=== PATIENT | male | born 1965 | race Caucasian/White ===

== ENCOUNTER → 2019-09-26 08:48 | Outpatient (CLI) | payer OTHER, SELFPAY ==
--- NOTE | ~2019-09-26 | XR_ITS ---
XR chest 2V DATE: 09/26/2019 09:21 INDICATION: Chest wall pain. Productive cough for 7 days. Smoker. TECHNIQUE: PA and lateral views COMPARISON: 10/03/2018 PA and lateral chest FINDINGS: Normal heart size. No hilar or mediastinal enlargement. No pulmonary infiltrate or consolid ation, pleural effusion or pulmonary vascular congestion or pneumothorax is detected. There is aortic arch calcification. IMPRESSION: No active cardiopulmonary disease Reviewed, dictated and finalized at location B. ING ROOM SUPERVISOR
== END ==
PROVIDERS: PCP Physician Assistant; Visit Provider Physician Assistant
DX: R05 Cough (principal)
CPT/HCPCS: 71046

== ENCOUNTER 2019-10-08 17:18 | Outpatient (CLI) | payer BC, SELFPAY ==
[2019-10-08 17:44] LABS: Basophils Absolute Auto 0.1 K/mm3 (0.0-0.1); Basophils Percent Auto 0.4 % (0.2-1.2); Eosinophils Absolute Auto 0.3 K/mm3 (0-0.3); Eosinophils Percent Auto 2.2 % (0-4.4); Hematocrit 45.6 % (42.0-52.0); Hemoglobin 14.8 g/dL (14.0-18.0); Immature Granulocyte Absolute 0.05 K/mm3 (0.00-0.031); Immature Granulocyte Percent A 0.4 % (0-0.5); Lymphocytes Absolute Auto 3.63 K/mm3 (0.9-3.2); Lymphocytes Percent Auto 28.6 % (18.3-44.2); Mean Corpuscular HGB Conc 32.5 g/dl (32-36); Mean Corpuscular Hemoglobin 30.4 pg (26-34); Mean Corpuscular Volume 93.6 fl (80-100); Mean Platelet Volume 10.7 fl (7.4-10.4); Monocytes Absolute Auto 0.8 K/mm3 (0.1-0.6); Monocytes Percent Auto 6.4 % (2.6-8.5); Neutrophils Absolute Auto 7.9 K/mm3 (1.3-6.7); Platelet Count Result 238 k/mm3 (150-375); Red Blood Count 4.87 M/mm3 (4.6-6.20); Red Cell Distribution Width 13.3 % (11.5-14.5); White Blood Count 12.7 K/mm3 (4.5-10.0)
[2019-10-08 17:55] LABS: Alanine Aminotransferase 39 U/L (4-50); Albumin Level 4.5 g/dL (3.5-5.1); Alkaline Phosphatase 99 U/L (38-126); Amylase 74 U/L (30-110); Aspartate Amino Transferase 31 U/L (17-59); Bilirubin,Total 0.6 mg/dL (0.2-1.3); Blood Urea Nitrogen 19 mg/dL (9-20); Calcium 9.5 mg/dL (8.4-10.2); Carbon Dioxide 28 mmol/L (22-30); Chloride 103 mmol/L (98-107); Estimated Glomerular Filt Rate > 60; Glucose 83 mg/dL (75-110); Lipase 69 U/L (23-300); Potassium 4.2 mmol/L (3.4-5.0); Sodium 139 mmol/L (137-145)
[2019-10-08 19:22] LABS: Hemoglobin A1C 6.1 % (<5.7)
== END 2019-10-08 17:19 | disposition home or self-care (01) ==
LOC: ANHLAB 17:21
PROVIDERS: PCP Physician Assistant; Visit Provider Physician Assistant
DX: R10.84 Generalized abdominal pain (principal); Z13.1 Encounter for screening for diabetes mellitus
CPT/HCPCS: 36415; 80053; 82150; 83036; 83690; 85025

== ENCOUNTER 2019-10-09 15:35 | Outpatient (CLI) | payer BC, SELFPAY ==
--- NOTE | ~2019-10-09 | CT_ITS ---
EXAMINATION: CT abdomen pelvis w con EXAM DATE: 10/09/2019 16:15 INDICATION: Flank, low back pain. TECHNIQUE: Spiral CT of the abdomen and pelvis was performed following intravenous injection of 100 m L Omnipaque 350. Axial, coronal and sagittal images were reviewed. The dose-length product (DLP) fo r this examination was 1328.53 mGy-cm. The exposure was tailored according to patient size (auto mA exposure control), and iterative reconstruction (ASIR) was used as additional dose reduction techniqu e. There is no prior study for comparison. FINDINGS: Bilateral adrenal gland hyperplasia, left more than right. The liver, spleen, adrenal glan ds and pancreas are otherwise unremarkable. Gallbladder is unremarkable. No biliary obstruction. P ortal and splenic veins are patent. Kidneys enhance symmetrically. There is no hydronephrosis. Ther e is a 2 mm left inferior calyceal stone. The prostate is unremarkable. The bladder is unremarkable . There is no retroperitoneal or pelvic lymphadenopathy. There is mild scattered arteriosclerotic disease. The appendix is normal. The stomach and small bowel are unremarkable. There is expected amount of c olonic stool. There is mild scattered colonic diverticulosis. There is no adjacent inflammatory christy ge to suggest diverticulitis. The heart is normal in size. There are no pericardial or pleural effus ions. The lung bases are unremarkable. There are no acute fractures identified. IMPRESSION: 1. No acute intra-abdominal findings. 2. Adrenal hyperplasia. 3. Mild scattered colonic diverticulosis. Reviewed, dictated and finalized at location A. F SECURITY OFFICER
== END 2019-10-09 15:36 | disposition home or self-care (01) ==
LOC: ANHIMG 15:41
PROVIDERS: PCP Physician Assistant; Visit Provider Physician Assistant
DX: S30.1XXA Contusion of abdominal wall, initial encounter (principal); X58.XXXA Exposure to other specified factors, initial encounter; K57.30 Diverticulosis of large intestine without perforation or abscess without bleeding
CPT/HCPCS: 74177; Q9967

== ENCOUNTER 2019-10-27 08:50 | Emergency (ER) | payer BC, SELFPAY ==
--- NOTE | ~2019-10-27 | XR_ITS ---
[XR ribs LT 2V w CXR 2V ] INDICATION: Rib pain. Cough. TECHNIQUE: Frontal projection of the upper left ribs, frontal projection of the lower left ribs, obli que projection of all the left ribs, frontal inspiratory chest x-ray for interpretation. FINDINGS: There is an acute nondisplaced left ninth rib fracture. There are no soft tissue abnormalit y seen. The lungs are clear. IMPRESSION: 1: Acute nondisplaced left ninth rib fracture. Reviewed, dictated and finalized at location A. SURVEYING SURVEY WORKER
[2019-10-27 08:56] VITALS: BP 190/89; PULSE 95; RESP 16; TEMP 36.6; O2SAT 97
--- NOTE | 2019-10-27 09:31 | ECG_ITS ---
Measurements Intervals [place] Rate: 89 P: 29 [place]: 174 QRS: 43 QRSD: 111 T: 37 QT: 350 QTc: 428 Interpretive Statements SINUS RHYTHM MINIMAL Q WAVES- INFERIOR LEADS BASELINE ARTIFACT- I, II, III, AVR, AVL, AVF, V4-V5 BORDERLINE ECG Electronically Signed On 10-27-2019 15:55:43 CHEMICAL PROJECT ENGINEER by Angel Narayan D.O.
--- NOTE | 2019-10-27 09:35 | ED.BACK ---
HPI - Back Pain/Injury General Chief Complaint: Back Pain/Injury <JENNY Jones Last Filed: 10/27/19 10:40> Stated Complaint: L rib pain <JENNY Jones Last Filed: 10/27/19 10:40> Time Seen by Provider: 10/27/19 09:04 <JENNY Jones Last Filed: 10/27/19 10:40> Source: patient <JENNY Jones Last Filed: 10/27/19 10:40> Mode of arrival: ambulatory <JENNY Jones Last Filed: 10/27/19 10:40> Limitations: no limitations <JENNY Jones Last Filed: 10/27/19 10:40> History of Present Illness HPI Narrative: This is a 54 year old male that presents to the ER for left sided rib pain x 1 month. Reports he had an upper respiratory infection at the beginning of last month and was coughing a lot. Reports since he has been having sharp left sided rib pain. Reports the pain is worse with deep breathing and coughing. Reports he coughed this morning and the pain acutely worsened. Denies fever, congestion, rhinorrhea, sore throat or shortness of breath. <JENNY Jones Last Filed: 10/27/19 10:40> Related Data Home Medications: Home Medications Medication Instructions Recorded Confirmed albuterol sulfate INHALATION 10/27/19 10/27/19 budesonide-formoterol [Symbicort] INHALATION 10/27/19 losartan 25 mg PO DAILY 10/27/19 meloxicam 10/27/19 <JENNY Jones Last Filed: 10/27/19 10:40> Allergies/Adverse Reactions: Allergies Allergy/AdvReac Type Severity Reaction Status Date / Time No Known Allergies Allergy Unverified 10/27/19 09:03 <JENNY Jones Last Filed: 10/27/19 10:40> Review of Systems Review of Systems: Narrative: CONSTITUTIONAL: Denies fever ENT: Denies rhinorrhea, congestion, sore throat CARDIOVASCULAR: Reports chest pain. Denies edema. RESPIRATORY: Reports cough. Denies dyspnea. MUSCULOSKELETAL: Reports back pain, joint pain, and myalgia. NEUROLOGIC: Denies numbness, or weakness. <Kiarra Perez PA-C - Last Filed: 10/27/19 10:40> All systems reviewed & are unremarkable except as noted in HPI and below <Kiarra Perez PA-C - Last Filed: 10/27/19 10:40> [facility] Past Medical History Medical History: Medical History (Updated 10/27/19 @ 10:37 by Kiarra Perez PA-C) History of hypertension <Kiarra Perez PA-C - Last Filed: 10/27/19 10:40> Social History Social History: Social History (Updated 10/27/19 @ 09:35 by Kiarra Perez PA-C) Smoking status: Current every day smoker Alcohol intake: current Gender identity (if verbalized by the patient): Male <Kiarra Perez PA-C - Last Filed: 10/27/19 10:40> Exam Narrative: Exam Narrative: GENERAL: Well-appearing, obese, and in no acute distress. HEAD: Normocephalic, atraumatic. EYES: EOMI. ENT: Nares clear, no rhinorrhea or epistaxis. Mucous membranes moist. Oropharynx without tonsillar hypertrophy exudate or other lesions. Bilateral TMs pearly irene non-bulging NECK: Supple. No adenopathy or masses. CHEST: Clear to auscultation. No respiratory distress. No wheezes rales or rhonchi. Tender to palpation of left lateral lower ribs HEART: Regular rate and rhythm. No murmur heard. Normal peripheral pulses. EXTREMITIES: Normal range of motion. No edema. SKIN: Warm, dry, no rash. NEURO: No focal deficits. Alert and oriented x3. PSYCH: Normal mood and affect <Kiarra Perez PA-C - Last Filed: 10/27/19 10:40> Course Vital Signs Vital signs: Vital Signs Temperature 97.8 F 10/27/19 08:56 Pulse Rate 95 10/27/19 08:56 Respiratory Rate 16 10/27/19 08:56 Blood Pressure 190/89 H 10/27/19 08:56 Pulse Oximetry 97 10/27/19 08:56 Temperature 97.8 F 10/27/19 08:56 Pulse Rate 77 10/27/19 11:11 Respiratory Rate 18 10/27/19 11:11 Blood Pressure 138/79 10/27/19 11:11 Pulse Oximetry 95 10/27/19 11:11 <Kiarra Perez PA-C - Last Filed: 10/27/19 10:40> Vital S
--- NOTE | 2019-10-27 09:44 | PC.NURSE ---
Pt in X ray at this time
[2019-10-27 09:58] LABS: Basophils Percent Auto 0.4 % (0.2-1.2); Eosinophils Absolute Auto 0.2 K/mm3 (0-0.3); Eosinophils Percent Auto 2.2 % (0-4.4); Hematocrit 46.8 % (42.0-52.0); Hemoglobin 15.5 g/dL (14.0-18.0); Immature Granulocyte Absolute 0.02 K/mm3 (0.00-0.031); Immature Granulocyte Percent A 0.2 % (0-0.5); Lymphocytes Absolute Auto 1.99 K/mm3 (0.9-3.2); Lymphocytes Percent Auto 23.4 % (18.3-44.2); Mean Corpuscular HGB Conc 33.1 g/dl (32-36); Mean Corpuscular Hemoglobin 30.7 pg (26-34); Mean Corpuscular Volume 92.7 fl (80-100); Mean Platelet Volume 10.6 fl (7.4-10.4); Monocytes Absolute Auto 0.6 K/mm3 (0.1-0.6); Monocytes Percent Auto 6.6 % (2.6-8.5); Neutrophils Absolute Auto 5.7 K/mm3 (1.3-6.7); Neutrophils Percent Auto 67.2 % (45.5-73.1); Platelet Count Result 209 k/mm3 (150-375); Red Blood Count 5.05 M/mm3 (4.6-6.20); Red Cell Distribution Width 13.1 % (11.5-14.5); White Blood Count 8.5 K/mm3 (4.5-10.0)
[2019-10-27] MEDS: LOSARTAN POTASSIUM 25 MG TABLET PO (10:01)
[2019-10-27 10:10] LABS: Blood Urea Nitrogen 13 mg/dL (9-20); Calcium 8.9 mg/dL (8.4-10.2); Carbon Dioxide 28 mmol/L (22-30); Chloride 101 mmol/L (98-107); Estimated CRCL calculation 120 ml/min; Estimated Glomerular Filt Rate > 60; Glucose 128 mg/dL (75-110); Potassium 3.9 mmol/L (3.4-5.0); Sodium 140 mmol/L (137-145)
[2019-10-27 10:16] LABS: D Dimer 0.61 ug/mL (<0.48)
[2019-10-27 10:21] LABS: Troponin I < 0.012 ng/mL (0.000-0.034)
[2019-10-27 11:11] VITALS: BP 138/79; PULSE 77; RESP 18; O2SAT 95
== END 2019-10-27 11:13 | disposition home or self-care (01) ==
PROVIDERS: Physician Assistant; Emergency Provider General Practice; PCP Physician Assistant
DX: S22.32XA Fracture of one rib, left side, initial encounter for closed fracture (principal); I10 Essential (primary) hypertension; F17.290 Nicotine dependence, other tobacco product, uncomplicated; R94.31 Abnormal electrocardiogram [ECG] [EKG]; X50.9XXA Other and unspecified overexertion or strenuous movements or postures, initial encounter
CPT/HCPCS: 36415; 71045; 71101; 80048; 84484; 85025; 85380; 93005; 99284; A9270

== ENCOUNTER 2020-10-05 11:26 | Emergency (ER) | payer BC, SELFPAY ==
[2020-10-05] VITALS (8 sets, daily range): BP systolic 110–166; BP diastolic 58–73; PULSE 77–93; RESP 11–19; TEMP 36.6; O2SAT 94–98
--- NOTE | ~2020-10-05 | XR_ITS ---
EXAMINATION: XR chest 1V portable EXAM DATE: 10/05/2020 11:46 INDICATION: Shortness of breath 4 times a week. History of COPD. TECHNIQUE: Portable AP frontal chest x-ray was obtained. Comparison is made to prior examination from 10/27/2019. FINDINGS: The lungs are clear. There are no pleural effusions. The cardiomediastinal silhouette is within normal limits. There is no pneumothorax suspected. The bones and soft tissues are unremarkab le. IMPRESSION: No acute cardiopulmonary findings. Reviewed, dictated and finalized at location B. H MIXER
--- NOTE | 2020-10-05 11:35 | ECG_ITS ---
Measurements Intervals [place] Rate: 89 P: 65 [place]: 210 QRS: 50 QRSD: 112 T: 60 QT: 317 QTc: 387 Interpretive Statements SINUS RHYTHM WITH FIRST DEGREE AV BLOCK INCOMPLETE RIGHT BUNDLE BRANCH BLOCK BASELINE ARTIFACT- II, III, AVF ABNORMAL ECG Electronically Signed On 10-05-2020 11:50:39 CHILD LIFE SPECIALIST by Angel Narayan D.O.
--- NOTE | 2020-10-05 11:39 | ED.SOB ---
HPI - SOB/Dyspnea General Chief Complaint: Shortness of Breath/Dyspnea Stated Complaint: sob Time Seen by Provider: 10/05/20 11:37 History of Present Illness HPI Narrative: 55 yo male w/ htn, COPD presents to the ED for SOB. Increasing SOB for a few months. Constant. Worse with exertion or laying flat on his back. He is on symbicort and albuterol, which does not seem to be helping. He reports that he can not tie his shoes without becoming SOB. He is supposed to have a sleep study for suspected sleep apnea. No cough, congestion, fever, CP, palpitations. Related Data Home Medications Medication Instructions Recorded Confirmed albuterol sulfate INHALATION 10/27/19 10/27/19 budesonide-formoterol [Symbicort] INHALATION 10/27/19 losartan 25 mg PO DAILY 10/27/19 meloxicam 10/27/19 Allergies Allergy/AdvReac Type Severity Reaction Status Date / Time No Known Allergies Allergy Unverified 10/27/19 09:03 Review of Systems Review of Systems: All systems reviewed & are unremarkable except as noted in HPI and below Constitutional: Constitutional: Denies chills, Denies fever(s) and Denies weakness Cardiovascular: Cardiovascular: Denies chest pain Respiratory: Respiratory: Denies chest congestion, Denies cough and Reports dyspnea Gastrointestinal: Gastrointestinal: Denies abdominal pain, Denies nausea and Denies vomiting Musculoskeletal: Musculoskeletal: Denies back pain Neurologic: Denies dizziness and Denies weakness [facility] Past Medical History Medical History (Updated 10/05/20 @ 14:16 by Khalif Veras MD) COPD (chronic obstructive pulmonary disease) History of hypertension Social History Social History (Updated 10/27/19 @ 09:35 by Kiarra Perez PA-C) Smoking status: Current every day smoker Alcohol intake: current Gender identity (if verbalized by the patient): Male Exam Const: General: no acute distress and alert Nutritional Appearance: obese Orientation/consciousness: patient oriented x3 HENMT: Head: normal to inspection Resp: Effort & Inspection: normal respiratory effort Auscultation: clear to auscultation bilaterally Cardio: Rate: regular rate Rhythm: regular rhythm GI: GI Palp: Yes Soft to palpation and No Tenderness to palpation present (GI) Skin: General skin exam: normal color Rashes: no rashes Neuro: General: patient oriented x3, moves all extremities, no focal motor deficits and CN's II-XI intact bilaterally Speech: normal speech Extrem: General: edema bilateral (mild) Psych: Mental Status: mental status grossly normal Affect: normal affect Thought content: Yes Normal thought content present Course Vital Signs Vital signs: Vital Signs Pulse Rate 90 10/05/20 11:36 Temperature 36.6 C 10/05/20 11:37 Pulse Rate 89 10/05/20 14:33 Respiratory Rate 18 10/05/20 14:33 Blood Pressure 110/63 10/05/20 14:33 Pulse Oximetry 94 10/05/20 14:33 MDM - SOB/Dyspnea MDM Narrative Medical decision making narrative: Breathing improved with neb. X-ray negative. I will treat for COPD exacerbation. Differential Diagnosis Differential diagnosis: Likely acute exacerbation of chronic obstructive airways disease, congestive heart failure and community acquired pneumonia Medical Records Attestation: I reviewed the patient's medical records. Lab Data Attestation: I reviewed the patient's lab results. Result diagrams: 10/05/20 11:39 10/05/20 11:39 Labs: Lab Results 10/05/20 10/05/20 10/05/20 Range/Units 11:39 11:39 11:39 WBC 11.5 H (4.5-10.0) K/mm3 RBC 4.87 (4.6-6.20) M/mm3 Hgb 15.3 (14.0-18.0) g/dL Hct 45.0 (42.0-52.0) % MCV 92.4 (80-100) fl MCH 31.4 (26-34) pg MCHC 34.0 (32-36) g/dl RDW 13.2 (11.5-14.5) % Plt Count 207 (150-375) k/mm3 MPV 10.8 H (7.4-10.4) fl Immature Gran % (Auto) 0.5 (0-0.5) % Neut % (Auto) 65.6 (45.5-73.1) % Lymph % (Auto) 24.7 (18.3-
[2020-10-05 11:46] LABS: Basophils Percent Auto 0.3 % (0.2-1.2); Eosinophils Absolute Auto 0.3 K/mm3 (0-0.3); Eosinophils Percent Auto 2.2 % (0-4.4); Hemoglobin 15.3 g/dL (14.0-18.0); Immature Granulocyte Absolute 0.06 K/mm3 (0.00-0.031); Immature Granulocyte Percent A 0.5 % (0-0.5); Lymphocytes Absolute Auto 2.83 K/mm3 (0.9-3.2); Lymphocytes Percent Auto 24.7 % (18.3-44.2); Mean Corpuscular Hemoglobin 31.4 pg (26-34); Mean Corpuscular Volume 92.4 fl (80-100); Mean Platelet Volume 10.8 fl (7.4-10.4); Monocytes Absolute Auto 0.8 K/mm3 (0.1-0.6); Monocytes Percent Auto 6.7 % (2.6-8.5); Neutrophils Absolute Auto 7.5 K/mm3 (1.3-6.7); Neutrophils Percent Auto 65.6 % (45.5-73.1); Platelet Count Result 207 k/mm3 (150-375); Red Blood Count 4.87 M/mm3 (4.6-6.20); Red Cell Distribution Width 13.2 % (11.5-14.5); White Blood Count 11.5 K/mm3 (4.5-10.0)
[2020-10-05 11:57] LABS: INR 0.9; Prothrombin Time 12.5 Seconds (11.1-14.7)
[2020-10-05 11:58] LABS: Alanine Aminotransferase 33 U/L (4-50); Albumin Level 4.1 g/dL (3.5-5.1); Alkaline Phosphatase 111 U/L (38-126); Anion Gap 7 mmol/L (8-16); Aspartate Amino Transferase 27 U/L (17-59); Bilirubin,Total 0.5 mg/dL (0.2-1.3); Blood Urea Nitrogen 14 mg/dL (9-20); Calcium 9.2 mg/dL (8.4-10.2); Carbon Dioxide 29 mmol/L (22-30); Chloride 104 mmol/L (98-107); Estimated CRCL calculation 125 ml/min; Estimated Glomerular Filt Rate > 60; Glucose 128 mg/dL (75-110); Sodium 140 mmol/L (137-145)
[2020-10-05 11:59] LABS: Partial Thromboplastin Time 26.7 SECONDS (22.3-36.8)
[2020-10-05 12:10] LABS: Troponin I < 0.012 ng/mL (0.000-0.034)
[2020-10-05] MEDS: ALBUTEROL SULFATE NEB 2.5 MG/0.5 ML INH 10 MG INHALATION (12:15)
[2020-10-05] MEDS: IPRATROPIUM BR 0.02% INH SOLN 0.5 MG/2.5 ML VIAL 1 MG INHALATION (12:15)
[2020-10-05] MEDS: methylPREDNISolone SOD SUCC 125 MG VIAL IV PUSH (12:17)
[2020-10-05 12:26] LABS: Base Excess ABG 1.4 mEq/l (+/-2.0); Carboxyhemoglobin 3.6 % THb (0-2.0); Fractional Inspired Oxygen 21 %; HCO3 ABG 26.3 mEq/l (22.0-26.0); Methemoglobin ABG 0.3 %THb (0-1.5); Oxygen Content ABG 19.1 %vol (16.0-22.0); Oxygen Saturation ABG 94.6 % (95.0-100.0); Oxyhemoglobin 90.4 % THb (90.0-100.0); PCO2 ABG 42.4 mmHg (35.0-45.0); PO2 FiO2 Ratio Arterial Blood 3.43 %; Reduced Hemoglobin 5.7 %THb (0-5.0)
[2020-10-05 12:27] LABS: Device ROOM AIR; Modified Allen's Test Pass; Site Drawn LEFT RADIAL
[2020-10-05 12:39] LABS: NT Pro B Type Natriuretic Pept 66 PG/ML (5-100)
== END 2020-10-05 14:34 | disposition home or self-care (01) ==
PROVIDERS: Emergency Provider Emergency Medicine; PCP Physician Assistant
DX: J44.1 Chronic obstructive pulmonary disease with (acute) exacerbation (principal); F17.200 Nicotine dependence, unspecified, uncomplicated; I10 Essential (primary) hypertension
CPT/HCPCS: 36415; 36600; 71045; 80053; 82375; 82805; 83050; 83880; 84484; 85025; 85610; 85730; 93005; 94640; 96374; 99284; J2930

== ENCOUNTER 2020-10-13 12:39 | Emergency (ER) | payer BC, SELFPAY ==
--- NOTE | ~2020-10-13 | XR_ITS ---
EXAMINATION: XR chest 2V DATE: 10/13/2020 13:17 INDICATION: Shortness of breath TECHNIQUE: PA and lateral views of the chest are obtained. COMPARISON: 10/05/2020 FINDINGS: There is minimal opacity of the right lung base. There is no pleural effusion or pneumothor ax. The cardiomediastinal silhouette is normal. There is mild thoracic spondylosis. IMPRESSION: 1. Minimal right basilar airspace opacity, consistent with atelectasis versus pneumonia. Reviewed, dictated and finalized at location A. LOG SPECIALIST IMPRESSION: 1. Minimal right basilar airspace opacity, consistent with atelectasis versus p neumonia.
--- NOTE | 2020-10-13 12:51 | ECG_ITS ---
Measurements Intervals [place] Rate: 88 P: 39 [place]: 195 QRS: 18 QRSD: 126 T: 29 QT: 343 QTc: 416 Interpretive Statements SINUS RHYTHM INCOMPLETE RIGHT BUNDLE BRANCH BLOCK INFERIOR INFARCT, AGE INDETERMINATE ABNORMAL ECG Electronically Signed On 10-13-2020 12:59:36 COTTON STRIPPER by Angel Narayan D.O.
[2020-10-13 13:04] VITALS: BP 158/75; PULSE 92; RESP 18; TEMP 36.1; O2SAT 98
[2020-10-13 13:16] LABS: Basophils Percent Auto 0.3 % (0.2-1.2); Eosinophils Absolute Auto 0.2 K/mm3 (0-0.3); Eosinophils Percent Auto 1.8 % (0-4.4); Hematocrit 42.2 % (42.0-52.0); Hemoglobin 14.1 g/dL (14.0-18.0); Immature Granulocyte Absolute 0.07 K/mm3 (0.00-0.031); Immature Granulocyte Percent A 0.7 % (0-0.5); Lymphocytes Absolute Auto 2.38 K/mm3 (0.9-3.2); Lymphocytes Percent Auto 24.1 % (18.3-44.2); Mean Corpuscular HGB Conc 33.4 g/dl (32-36); Mean Corpuscular Hemoglobin 31.1 pg (26-34); Mean Corpuscular Volume 93.2 fl (80-100); Mean Platelet Volume 10.5 fl (7.4-10.4); Monocytes Absolute Auto 0.6 K/mm3 (0.1-0.6); Monocytes Percent Auto 6.5 % (2.6-8.5); Neutrophils Absolute Auto 6.6 K/mm3 (1.3-6.7); Neutrophils Percent Auto 66.6 % (45.5-73.1); Platelet Count Result 172 k/mm3 (150-375); Red Blood Count 4.53 M/mm3 (4.6-6.20); Red Cell Distribution Width 13.2 % (11.5-14.5); White Blood Count 9.9 K/mm3 (4.5-10.0)
[2020-10-13 13:27] LABS: Alanine Aminotransferase 64 U/L (4-50); Albumin Level 3.7 g/dL (3.5-5.1); Alkaline Phosphatase 109 U/L (38-126); Anion Gap 4 mmol/L (8-16); Aspartate Amino Transferase 35 U/L (17-59); Bilirubin,Total 0.6 mg/dL (0.2-1.3); Blood Urea Nitrogen 15 mg/dL (9-20); Calcium 8.8 mg/dL (8.4-10.2); Carbon Dioxide 27 mmol/L (22-30); Chloride 107 mmol/L (98-107); Estimated CRCL calculation 163 ml/min; Estimated Glomerular Filt Rate > 60; Glucose 142 mg/dL (75-110); Sodium 138 mmol/L (137-145)
[2020-10-13 13:36] LABS: NT Pro B Type Natriuretic Pept 74 PG/ML (5-100)
[2020-10-13 15:02] VITALS: BP 136/73; PULSE 82; RESP 20; TEMP 36.4; O2SAT 96
[2020-10-13 16:16] VITALS: O2SAT 93
[2020-10-13 16:17] VITALS: BP 164/101; O2SAT 95
--- NOTE | 2020-10-13 16:35 | ED.GENADULT ---
HPI - General Adult General Chief complaint: Shortness of Breath/Dyspnea Stated complaint: sob Time Seen by Provider: 10/13/20 16:14 Source: patient History of Present Illness HPI narrative: Patient is a 55 y/o male complaining moderate head and neck swelling this morning. He states that he woke up feeling swollen. He also noticed redness on his and neck. He felt there was something in throat choking him. There is no known alleviating or exacerbating factor. However, his symptoms improved spontaneously. He does not feel any swelling at this time. Related Data Home Medications Medication Instructions Recorded Confirmed albuterol sulfate 2 puff INHALATION Q4H 10/27/19 10/13/20 losartan 25 mg PO DAILY 10/27/19 10/13/20 meloxicam 15 mg PO DAILY 10/27/19 10/13/20 varenicline [Chantix Starting 1 ea PO DAILY 10/13/20 10/13/20 Month Box] Allergies Allergy/AdvReac Type Severity Reaction Status Date / Time No Known Allergies Allergy Verified 10/13/20 15:03 Review of Systems Constitutional: Constitutional: Denies chills, Denies fever(s), Denies headache(s) and Denies weakness Eyes: Eyes: Denies blurry vision ENT: Denies headache(s), Denies neck pain and Reports other (head and neck swelling) Cardiovascular: Cardiovascular: Denies chest pain and Reports dyspnea Respiratory: Respiratory: Denies cough and Reports dyspnea Gastrointestinal: Gastrointestinal: Denies abdominal pain, Denies diarrhea, Denies nausea and Denies vomiting Genitourinary: Genitourinary: Denies hematuria and Denies dysuria Musculoskeletal: Musculoskeletal: Denies back pain and Denies neck pain Neurologic: Denies headache(s) and Denies weakness [facility] Past Medical History Medical History COPD (chronic obstructive pulmonary disease) History of hypertension Social History Social History Smoking status: Current every day smoker Alcohol intake: current Gender identity (if verbalized by the patient): Male Exam Const: General: no acute distress and well developed Orientation/consciousness: oriented to person, oriented to place, oriented to time and patient oriented x3 HENMT: Head: normocephalic Ears: external ears normal General nose exam: Normal external nose present Eyes: General: appearance normal, both eyes and all related structures Conjunctivae: conjunctivae normal Neck: Neck: normal visual inspection and full ROM Chest: Chest palpation & inspection: normal inspection of the chest and no tenderness Resp: Effort & Inspection: normal respiratory effort Auscultation: clear to auscultation bilaterally Cardio: Rate: regular rate Rhythm: regular rhythm GI: GI Palp: No abdominal tenderness and Yes Soft to palpation Skin: General skin exam: normal color and turgor normal Neuro: General: oriented to person, oriented to place, oriented to time and patient oriented x3 Cognition (Neuro): normal cognition Extrem: General: normal to inspection, full ROM and no pedal edema Psych: Appearance: grossly normal Mental Status: mental status grossly normal Affect: normal affect Course Reevaluation(s) Reevaluation #1: Patient does not want to have CT done. He wants to leave A. He is awake, alert and competent to make decision for himself. Date: 10/13/20 Time: 18:42 Vital Signs Vital signs: Vital Signs Temperature 36.1 C L 10/13/20 13:04 Pulse Rate 92 10/13/20 13:04 Respiratory Rate 18 10/13/20 13:04 Blood Pressure 158/75 H 10/13/20 13:04 Pulse Oximetry 98 10/13/20 13:04 Temperature 36.4 C L 10/13/20 15:02 Pulse Rate 82 10/13/20 15:02 Respiratory Rate 20 10/13/20 15:02 Blood Pressure 164/101 H 10/13/20 16:17 Pulse Oximetry 95 10/13/20 16:17 Medical Decision Making Vital Signs Vital Signs: Vital Signs Temperature 36.1 C L 10/13/20 13:04 Pulse Rate 92 10/13/20 13:04 Respiratory Rat
== END 2020-10-13 19:08 | disposition left against medical advice (07) ==
PROVIDERS: Emergency Medicine; Emergency Provider Emergency Medicine; PCP Physician Assistant
DX: R22.1 Localized swelling, mass and lump, neck (principal); R06.02 Shortness of breath; J44.9 Chronic obstructive pulmonary disease, unspecified; I10 Essential (primary) hypertension; F17.200 Nicotine dependence, unspecified, uncomplicated; I45.10 Unspecified right bundle-branch block; R94.31 Abnormal electrocardiogram [ECG] [EKG]
CPT/HCPCS: 36415; 71046; 80053; 83880; 85025; 93005; 99283

== ENCOUNTER 2020-12-02 13:21 | Outpatient (CLI) | payer BC, SELFPAY ==
--- NOTE | ~2020-12-02 | CT_ITS ---
EXAMINATION: CT lung screening DATE: 12/02/2020 13:42 INDICATION: Personal history of tobacco dependence TECHNIQUE: Computed tomography (CT) of the chest was performed without intravenous contrast. The dose -length product was 535.46 mGy-cm. Automated exposure control and iterative reconstruction technique were employed. COMPARISON: None FINDINGS: Heart size is normal. No thoracic lymphadenopathy. No significant pleural or pericardial ef fusion. There is lingular atelectasis/scarring. No endobronchial lesions mild emphysematous changes. There is a 2.3 x 1.4 cm left adrenal nodule, likely benign. No focal airspace consolidation. No pulmo nary nodules or masses. Mild thoracic spondylosis. IMPRESSION: 1. Lung-RADS category 1: Negative. Continue annual screening with noncontrast low-dose chest CT in 12 months. Reviewed, dictated and finalized at location B. IMPRESSION: 1. Lung-RADS category 1: Negative. Continue annual screening with noncontrast l ow-dose chest CT in 12 months.
== END 2020-12-02 13:22 | disposition home or self-care (01) ==
PROVIDERS: PCP Physician Assistant; Visit Provider Internal Medicine Pulmonary Disease
DX: Z12.2 Encounter for screening for malignant neoplasm of respiratory organs (principal); Z87.891 Personal history of nicotine dependence
CPT/HCPCS: 71271

== ENCOUNTER 2020-12-10 13:45 | Outpatient (CLI) | payer BC, SELFPAY ==
[2020-12-10 13:10] VITALS: PULSE 82; O2SAT 95
--- NOTE | 2020-12-10 13:53 | ECHO_ITS ---
Patient Info Name: Abdiel Srivastava Age: 55 years : 1965 Gender: Male Ht: 71 in Wt: 300 lbs BSA: 2.67 m2 HR: 80 bpm BP: 167 / 86 mmHg Technical Quality: Fair Exam Date: 12/10/2020 2:03 PM Exam Location: [facility] Patient Status: Outpatient Admit Date: 12/10/2020 Staff Ordering Physician: Cornell Rider MD Surveyor Helper: Lety Ramos RDCS Attending Provider: Cornell Rider MD Referring Physician: Tereso TOBIN; Exam Type: CA echo doppler color flow Study Info Indications R06.02 - Shortness of breath Complete two-dimentional, color flow and Doppler transthoracic echocardiogram is performed with agitated saline and with contrast to opacify the left ventricle and to improve the delineation of the left ventricle endocardial borders. Summary 1. Left ventricular chamber dimension is normal. 2. Left ventricular systolic function is normal, estimated at 60-65%. 3. The left ventricular diastolic function is normal. 4. E/e' 8 is minimally elevated. 5. Global longitudinal strain is abnormal at -15.8%. 6. There is mild aortic valve sclerosis. Left Ventricle E/e' 8 is minimally elevated. Global longitudinal strain is abnormal at -15.8%. Left ventricular chamber dimension is normal. Left ventricular systolic function is normal, estimated at 60-65%. The left ventricular diastolic function is normal. Right Ventricle Right ventricular chamber dimension is normal. Right ventricular systolic function is normal. Left Atria Left atrial chamber dimension is normal. Right Atria Right atrial chamber dimension is normal. Aortic Valve The aortic valve is trileaflet. There is mild aortic valve sclerosis. There is no aortic valve stenosis. There is no aortic valve regurgitation. Pulmonic Valve There is no pulmonic regurgitation. Mitral Valve There is no mitral valve stenosis. There is no mitral valve regurgitation. Tricuspid Valve There is no tricuspid valve regurgitation. Pericardium/Pleural There is no pericardial effusion. Inferior Vena Cava Normal inferior vena cava with >50% collapse upon inspiration consistent with normal right atrial pressure, 5 mmHg. Aorta The aortic root size at the sinus of Valsalva is normal. Left Ventricular Outflow Tract Name Value Normal LVOT 2D LVOT Diameter 2.0 cm LVOT Doppler LVOT Peak Gradient 6 mmHg LVOT Mean Gradient 4 mmHg LVOT VTI 22 cm LVOT VTI/AV VTI Ratio 1.0 LVOT Stroke Volume 72 ml LVOT CO 5.5 l/min LVOT CI 2.1 l/min/m2 Pulmonic Valve Name Value Normal RVOT Doppler RVOT Peak Gradient 3 mmHg PV Doppler
[2020-12-10 14:50] VITALS: PULSE 88; O2SAT 95
[2020-12-10 14:55] VITALS: PULSE 102; O2SAT 93
--- NOTE | 2020-12-10 15:16 | HOMEO2EVAL ---
Home Oxygen Evaluation RC: Home Oxygen (O2) Evaluation Start: 12/10/20 15:14 Freq: Status: Active Protocol: RPE Activity Type Activity Date Activity User E-Sign Co-Sign Detail Recorded Client Recorded Date Recorded By Document 12/10/20 13:10 DJO [email or web address] 12/10/20 15:16 DJO Document 12/10/20 14:50 DJO [email or web address] 12/10/20 15:16 DJO Document 12/10/20 14:55 DJO [email or web address] 12/10/20 15:16 DJO 12/10/20 12/10/20 12/10/20 13:10 14:50 14:55 Home O2 Evaluation Test Phase Resting Resting Exercise Oxygen Delivery Room Air Room Air Room Air Pulse Oximetry (90-100 %) 95 95 93 Pulse Rate (60-100 beats/min) 82 88 102 H Ambulation Distance (feet) 1,000 Treatment Charges O2 Evaluation - Outpatient
--- NOTE | 2020-12-10 17:43 | P.PCNPFT_ITS ---
PFT Interpretation This is a pulmonary function test with pre and post-bronchodilator spirometry, plethysmography and diffusing capacity. The test was performed and results interpreted in accordance with the 2019 and 2005 ATS/ERS Task Force guidelines respectively using the Global Lung Function Initiative-2012 reference equations. Patient demonstrated good effort and c ooperation. Reproducibility criteria were met. The quality of the pre bronchodilator spirometry maneuver was Grade A and post bronchodilator spirometry maneuver was Grade A. Findings: Spirometry: There is decreased maximal expiratory airflow at all lung volumes with a concave expiratory flow tracing. The pre bronchodilator FVC is 3.09 L, 63% predicted. The pre bronchodilator FEV1 is 2.13 L, 56% predicted. The FEV1: FVC ratio 69%. The post bronchodilator FVC is 3.19 L, representing a 3% increase. Post bronchodilator FEV1 is 2.19 L, representing a 3% increase. Plethysmography: The total lung capacity is 5.29, 74% predicted. The functional residual capacity is 2.40 L, 64% predicted. The residual volume is 2.19 L, 98% predicted. Diffusing capacity: The absolute diffusion capacity is 20.8, 70% predicted. The diffusing capacity corrected for alveolar volume is 4.41, 103% predicted. Impression: There is a combined obstructive and restrictive ventilatory abnormality. There are no guidelines to assign the severity of obstruction and restriction with a combined abnormality. In my opinion, given the moderately concave expiratory flow tracing and decreased FEV1:FVC ratio and mild restrictive abnormality I would state there is a moderate obstructive abnormality and a mild restrictive abnormality resulting in a moderately severe decreased FEV1. There is no significant improvement after inhaling a single dose of albuterol. The diffusing capacity is mildly decreased but normalizes when corrected for alveolar volume. There are no prior studies for comparison PFT Procedure Performed PFT Procedure Performed Spirometry with Pre/Post Bronchodilator Plethysmography (Lung Vol) Diffusing Cap (DLCO)
--- NOTE | 2021-01-04 16:19 | HOMEO2EVAL ---
Evaluation was performed at [facility]
== END 2020-12-10 13:46 | disposition home or self-care (01) ==
PROVIDERS: PCP Physician Assistant; Visit Provider Internal Medicine Pulmonary Disease
DX: R06.02 Shortness of breath (principal); J44.9 Chronic obstructive pulmonary disease, unspecified; R94.2 Abnormal results of pulmonary function studies; I35.8 Other nonrheumatic aortic valve disorders
CPT/HCPCS: 93306; 94060; 94618; 94726; 94729

== ENCOUNTER 2022-09-08 09:52 | Outpatient (CLI) | payer BC, SELFPAY ==
--- NOTE | ~2022-09-08 | CT_ITS ---
CT Scan of the Chest without Contrast: Clinical Indication: Cancer screening, personal history of tobacco dependent, current smoker Technique: Contiguous sections were acquired throughout the chest without intravenous contrast. Dose reduction technique was used on this scan by utilizing automated exposure control and iterative recon struction technique. The dose-length product (DLP) was 441.39 mGy-cm. COMPARISON: 12/02/2020 Findings: There is no evidence of any significant mediastinal, hilar or axillary lymphadenopathy. Mild coronary artery calcifications are present. There is no evidence of pleural or pericardial effusion. The lungs are clear. No pulmonary nodules or infiltrates are noted. Images through the upper abdomen reveal stable adrenal nodule. Impression: Lung RADS 1: Negative. Continue annual surveillance with low-dose noncontrast CT scan in 12 months. Reviewed, dictated and finalized at [facility]. K DISPATCHER Impression: Lung RADS 1: Negative. Continue annual surveillance with low-dose noncontrast C T scan in 12 months.
== END 2022-09-08 09:53 | disposition home or self-care (01) ==
PROVIDERS: PCP Physician Assistant; Visit Provider Internal Medicine Pulmonary Disease
DX: Z12.2 Encounter for screening for malignant neoplasm of respiratory organs (principal); Z87.891 Personal history of nicotine dependence
CPT/HCPCS: 71271

== ENCOUNTER 2022-12-13 08:23 | Observation (INO) | payer BC, SELFPAY ==
[2022-12-13] VITALS (29 sets, daily range): BP systolic 114–162; BP diastolic 59–80; PULSE 57–70; RESP 13–23; TEMP 36.1–36.6; O2SAT 92–100
--- NOTE | 2022-12-13 | ECHO_ITS ---
Patient Info Name: Abdiel Srivastava Age: 57 years : 1965 Gender: Male Ht: 71 in Wt: 241 lbs BSA: 2.38 m2 HR: 57 bpm BP: 148 / 79 mmHg Heart Rhythm: Sinus Rhythm Exam Date: 12/13/2022 2:39 PM Exam Location: [facility] Pulmonary Patient Status: Outpatient Admit Date: 12/13/2022 Staff Ordering Physician: Pili Weston NP [employer] Mechanic: Domingo Hill RDCS, RT Attending Provider: Lawrence Nayak MD Referring Physician: Enrico LENZ; Exam Type: CA echo doppler color flow Study Info Indications R07.9 - Chest pain, unspecified Complete two-dimensional, color flow and Doppler transthoracic echocardiogram is performed. Summary 1. Complete two-dimensional, color flow and Doppler transthoracic echocardiogram is performed. 2. Left ventricular chamber dimension is normal. 3. Left ventricular systolic function is normal, estimated at 60-65%. 4. There is moderately increased left ventricular wall thickness. 5. The left ventricular diastolic function is grade II diastolic dysfunction. 6. Global longitudinal strain is mildly elevated at -14 %. 7. Technically difficult study with limited views. 8. There is trace mitral valve regurgitation. Left Ventricle Left ventricular chamber dimension is normal. Left ventricular systolic function is normal, estimated at 60-65%. There is moderately increased left ventricular wall thickness. The left ventricular diastolic function is grade II diastolic dysfunction. Global longitudinal strain is mildly elevated at -14 %. Technically difficult study with limited views. Right Ventricle Right ventricular chamber dimension is normal. Right ventricular systolic function is normal. Left Atria Left atrial chamber dimension is normal. Right Atria Right atrial chamber dimension is mildly enlarged. Aortic Valve The aortic valve is trileaflet. There is no aortic valve stenosis. There is no aortic valve regurgitation. Pulmonic Valve The pulmonic valve is not well visualized. There is trace pulmonic regurgitation. Mitral Valve The mitral valve has normal leaflets. There is trace mitral valve regurgitation. Tricuspid Valve The tricuspid valve leaflets are normal. There is trace tricuspid valve regurgitation. Unable to estimate PA systolic pressure due to poor spectral resolution of tricuspid regurgitant jet velocity. Pericardium/Pleural The pericardium appears normal. There is no pericardial effusion. Inferior Vena Cava Normal inferior vena cava with >50% collapse upon inspiration consistent with normal right atrial pressure, 5 mmHg. Aorta The aortic root size at the sinus of Valsalva is normal. There is mild aortic atherosclerosis. Left Ventricular Outflow Tract Name Value Normal LVOT 2D LVOT Diameter 2.2 cm LVOT Doppler LVOT Peak Gradient 4 mmHg LVOT Mean Gradient 2 mmHg LVOT VTI 21 cm LVOT VTI/AV VTI Ratio 1.0 LVOT Stroke Volume 81 ml LVOT CO 4.8 l/min
--- NOTE | ~2022-12-13 | XR_ITS ---
Clinical Indication: Chest pain PA and lateral views of the chest: Comparison: 10/13/2020 Findings: The lungs are clear, without evidence of focal consolidation or pleural effusion. Cardiome diastinal silhouette is within normal limits. Bones and soft tissues are unremarkable. Impression: Normal chest. Reviewed, dictated and finalized at location . Impression: Normal chest.
--- NOTE | 2022-12-13 08:24 | ECG_ITS ---
Measurements Intervals Anderson Rate: 70 P: 58 OR: 228 QRS: 30 QRSD: 122 T: 38 QT: 380 QTc: 412 Interpretive Statements SINUS RHYTHM WITH FIRST DEGREE AV BLOCK RIGHT BUNDLE-BRANCH BLOCK ABNORMAL ECG COMPARED TO ECG 10/13/2020 12:56:19 FIRST DEGREE AV BLOCK NOW PRESENT RIGHT BUNDLE-BRANCH BLOCK NOW PRESENT Electronically Signed On 12-13-2022 16:20:02 CDT by Tereso Castillo M.D.
--- NOTE | 2022-12-13 08:34 | ED.CHESTPAIN ---
HPI - Chest Pain General Chief Complaint: Chest Pain Stated Complaint: chest pain Time Seen by Provider: 12/13/22 08:26 Source: patient, family and RN notes reviewed History of Present Illness HPI narrative: Patient presents to emergency department from home for chest pain. Patient states he has been having intermittent chest pain located over the midsternal left side of his chest that began last night. States that the pain is a pressure sensation goes up into his neck and into his arms bilaterally but worse on the left states that the pain will last for approximately 20 seconds and then improved then he states he has had several episodes of these throughout the night is associate with mild shortness of breath. He denies any fevers or chills abdominal pain nausea or vomiting denies any previous cardiac history. Does note a history of hypertension high cholesterol and tobacco use Related Data Home Medications Medication Instructions Recorded Confirmed albuterol sulfate 90 mcg/actuation 2 puff inhalation Q4H 10/27/19 08/09/22 aerosol inhaler losartan 25 mg tablet 25 mg PO DAILY 10/27/19 08/09/22 meloxicam 15 mg tablet 15 mg PO DAILY 10/27/19 08/09/22 Allergies Allergy/AdvReac Type Severity Reaction Status Date / Time No Known Allergies Allergy Verified 12/13/22 08:34 Review of Systems Review of Systems: Gen.: Denies fevers or chills ENT: Denies congestion Respiratory: Reports shortness of breath CV: Reports chest pain GI: Denies abdominal pain nausea, emesis or diarrhea Musculoskeletal: Denies back pain or muscle pain Neuro: Denies numbness, tingling, weakness or focal weakness Skin: Denies rash Except as documented, all other systems reviewed and negative [facility] Past Medical History Medical History (Updated 12/13/22 @ 12:30 by Sammy Pedersen DO) Acute pain of right knee Body mass index [BMI] 29.0-29.9, adult (09/16/15) COPD (chronic obstructive pulmonary disease) Effusion of knee joint, left History of hypertension Lateral epicondylitis, right elbow Prepatellar bursitis of right knee Primary osteoarthritis of left knee Social History Social History Smoking packs per day: 0.5 Smoking cigarettes per day: 10.0 Years smoked: 30 Smoking pack-years: 15.00 Smoking status: Current every day smoker Alcohol intake: current Gender identity (if verbalized by the patient): Male Exam Narrative: APPEARANCE: No acute distress, nontoxic, resting in bed EYES: EOMI HEENT: Normocephalic, atraumatic, OMM RESPIRATORY: No respiratory distress Clear to auscultation bilaterally with no rhonchi wheezing or rales. CARDIOVASCULAR: Regular rate and rhythm without murmurs rubs or gallops. ABDOMINAL: Soft, nontender, nondistended, no rebound or guarding MUSCULOSKELETAl: Moves all extremities. No clubbing, cyanosis or edema. NEURO: Awake and alert. Following commands, speech normal, no focal deficits SKIN:: Warm, dry. No rashes lesions or abrasions PSYCHIATRIC: Normal affect/mood, Course Course Emergency Course: Called and discussed with NORA Leslie for Dr. Iglesias for cardiology presentation work-up agrees with consult Discussed with Dr. Nayak who agrees with admission for hospitalist service Discussed with patient and family results of workup and diagnosis. Discussed need for admission. Patient and family understand and agree to current treatment plan Vital Signs Vital signs: Vital Signs Temperature 97.8 F 12/13/22 08:29 Pulse Rate 68 12/13/22 08:29 Respiratory Rate 16 12/13/22 08:29 Blood Pressure 162/78 H 12/13/22 08:29 Pulse Oximetry 98 12/13/22 08:29 Oxygen Delivery Room Air 12/13/22 08:29 Temperature 97.8 F 12/13/22 08:29 Pulse Rate 63 12/13/22 11:43 Respiratory Rate 18 12/13/22 11:43 Blood Pressure 140/80 12/13/22 11:01 Pulse Oximetry 98 12/13/22 11:43 Oxygen Delivery Room Air 12/13/22 08:29
[2022-12-13] MEDS: ASPIRIN 81 MG CHEWABLE TABLET 324 MG PO (08:35)
[2022-12-13 08:37] LABS: Basophils Percent Auto 0.5 % (0.2-1.2); Eosinophils Absolute Auto 0.2 K/mm3 (0-0.3); Eosinophils Percent Auto 1.9 % (0-4.4); Hematocrit 49.1 % (42.0-52.0); Hemoglobin 16.1 g/dL (14.0-18.0); Immature Granulocyte Absolute 0.01 K/mm3 (0.00-0.031); Immature Granulocyte Percent A 0.1 % (0-0.5); Lymphocytes Absolute Auto 2.39 K/mm3 (0.9-3.2); Lymphocytes Percent Auto 27.8 % (18.3-44.2); Mean Corpuscular HGB Conc 32.8 g/dl (32-36); Mean Corpuscular Volume 94.4 fl (80-100); Mean Platelet Volume 10.9 fl (7.4-10.4); Monocytes Absolute Auto 0.6 K/mm3 (0.1-0.6); Neutrophils Absolute Auto 5.4 K/mm3 (1.3-6.7); Neutrophils Percent Auto 62.7 % (45.5-73.1); Platelet Count Result 167 k/mm3 (150-375); Red Cell Distribution Width 13.8 % (11.5-14.5); White Blood Count 8.6 K/mm3 (4.5-10.0)
[2022-12-13 08:47] LABS: Alanine Aminotransferase 25 U/L (6-50); Albumin Level 4.8 g/dL (3.5-5.1); Alkaline Phosphatase 121 U/L (38-126); Anion Gap 9 mmol/L (8-16); Aspartate Amino Transferase 23 U/L (17-59); Bilirubin,Total 0.7 mg/dL (0.2-1.3); Blood Urea Nitrogen 22 mg/dL (9-20); Calcium 9.3 mg/dL (8.4-10.2); Carbon Dioxide 28 mmol/L (22-30); Chloride 104 mmol/L (98-107); Estimated CRCL calculation 123 ml/min; Estimated Glomerular Filt Rate > 60; Glucose 105 mg/dL (65-110); Lipase 81 U/L (23-300); Potassium 4.2 mmol/L (3.4-5.0); Prothrombin Time 12.6 Seconds (11.1-14.7); Sodium 141 mmol/L (137-145)
[2022-12-13 08:48] LABS: Partial Thromboplastin Time 30.9 SECONDS (22.3-36.8)
[2022-12-13 08:59] LABS: Troponin I < 0.012 ng/mL (0.000-0.034)
[2022-12-13 09:27] LABS: D Dimer 0.48 ug/mL (<0.48)
[2022-12-13 11:56] LABS: Troponin I < 0.012 ng/mL (0.000-0.034)
--- NOTE | 2022-12-13 12:52 | PM.IMHP ---
H&P: HPI History of Present Illness Date/Time: 12/13/22 12:52 Chief Complaint: Chest pain Narrative: This is a 57-year-old male patient who has a history of COPD and hypertension. The patient came to the emergency room from home with complaints of chest pain. The patient stated that his pain is located over his midsternal area but did not radiate to his neck or arm. However the patient stated his arms felt heavy. He denied any shortness of breath. This pain started when he was asleep last night and kept him awake. The patient took for small dose aspirin last night and the pain left after 20 minutes. The patient went to work at [employer] today and while he was walking he had this midsternal discomfort again. The patient did not take any more aspirin but was given aspirin here and the pain is now resolved. He denied any fever chills. No nausea vomiting. He had no previous cardiac history. The is at the bedside and she stated that he has had chest pain in the past but did not have it worked up. The patient did not say when his chest pain occurred last time. The patient has not had any cardiac catheterization or any stress test. The patient is irritated today and is wanting to go home. He has not eaten today and he is a chronic smoker. I cannot offer him a nicotine patch at this time due to the risk of coronary artery disease. I explained that if he left the hospital would be against medical advice. I recommended that he stay and had further workup and be evaluated by Cardiology before he is discharged. I explained that I ordered an echo and a stress test. I cannot guarantee if those tests will be done today or tomorrow. I did review his test results with him. His cardiac enzymes x2 are nonreactive so far. It looks like in the past and 2019 in 2020 he has had cardiac enzymes checked and those were negative as well. The patient also states that he feels that there is something in his throat or that his throat is dry. He denies acid reflux. Chest x-ray was read as normal chest. The patient was given aspirin in the emergency room. The patient is being admitted to observation status on the date of service of 12/13/2022 Review of Systems Review of Systems: All systems reviewed & are unremarkable except as noted in HPI and below Constitutional: Constitutional: Reports as per HPI and Reports no additional constitutional complaints Eyes: Eyes: Reports as per HPI and Reports no additional eye complaints ENT: Reports system reviewed and no additional complaints, except as documented and Reports Normal hearing present Cardiovascular: Cardiovascular: Reports no additional cardiovascular complaints Respiratory: Respiratory: Reports no additional respiratory complaints and Reports no additional respiratory complaints Gastrointestinal: Gastrointestinal: Reports as per HPI and Reports no additional gastrointestinal complaints Musculoskeletal: Musculoskeletal: Reports no additional musculoskeletal complaints Integumentary/Breasts: Skin/Breast: Reports system reviewed and no additional complaints, except as docu and Reports as per HPI Neurologic: Reports system reviewed and no additional complaints, except as documented, Reports as per HPI and Reports Normal hearing present Psychiatric: Psychiatric: Reports no additional psychiatric complaints and Reports as per HPI Endocrine: Endocrine: Reports no additional endocrine complaints Hematologic/Lymphatic: Hematologic/Lymphatic: Reports no additional hematologic/lymphatic complaints Allergic/Immunologic: Allergic/Immunologic: Reports no additional allergic/immunologic complaints [facility] Past Medical History Medical History Acute pain of right knee Body mass index [BMI] 29.0-29.9, adult (09/16/15) COPD (chronic obstructive pulmonary disease) Effusion of knee joint, left History of hypertension Lateral epicondylitis, right elbow Pre
--- NOTE | 2022-12-13 13:06 | PM.CNCAR ---
Assessment and Plan Assessment and plan (1) Chest pain: Code(s): R07.9 - Chest pain, unspecified Status: Acute Assessment and Plan: Presents with an occurrence of chest pain that awoke him from sleep this morning. Has been having complaint of this same chest pain intermittently for months. Chest pain seems to occur at random, does not have an exertional component. His EKG shows sinus rhythm with a first degree AVB, which is chronic. No ischemic STTW changes. He had two negative troponin levels. Echo showed normal LVSF and no RWMA. Free from chest pain since his presentation to the hospital. No objective evidence of ACS and he is chest pain free at this time, however he does have risk factors for CAD (smoking, HTN) so further work up in the form of a stress test would be reasonable. This can be done as an outpatient. He has follow up scheduled with Dr. Wallace next week. Educated him about angina and concerning s/s for LA. He verbalizes understanding and understands he is to return to the ED with recurrence of CP. (2) History of hypertension: Code(s): Z86.79 - Personal history of other diseases of the circulatory system Status: Acute Assessment and Plan: Patient states his blood pressure has always been borderline. He has been prescribed losartan but states he quit taking it because it wasn't changing anything. Advised him to resume his amlodipine. (3) History of tobacco abuse: Code(s): Z87.891 - Personal history of nicotine dependence Status: Acute Assessment and Plan: Smoking cessation recommended. History of Present Illness History of Present Illness Consult date/time: 12/13/22 13:06 Requesting physician: Sammy Pedersen DO Consult reason: chest pain Reason For Visit: Chest Pain Narrative: Mr. Srivastava is a 57 year old male with a history of COPD, hypertension, and tobacco use. This is a patient who presents to the emergency department with a chief complaint of chest pain. He has been having intermittent episodes of central chest pain for the past year. Patient was seen recently by his primary care doctor for this same complaint and was referred to our practive for evaluation but has not yet been seen. He states that he seems to experience the chest discomfort at random and most recently he awoke from sleep because of the pain. He denies any exertional chest pain. He describes the sensation as pressure. He also states that both of his arms feel heavy. He denies any palpitations, shortness of breath, syncope, pre-syncope, orthopnea, PND. He has been free from chest pain since this morning when he had the episode that prompted his presentation to the hospital. He does not have any complaints at the time of my interview. Review of Systems Review of Systems: All systems reviewed & are unremarkable except as noted in HPI and below PMFSH Past Medical History Medical History Acute pain of right knee Body mass index [BMI] 29.0-29.9, adult (09/16/15) COPD (chronic obstructive pulmonary disease) Effusion of knee joint, left History of hypertension Lateral epicondylitis, right elbow Prepatellar bursitis of right knee Primary osteoarthritis of left knee Surgical History Surgical History (Updated 12/13/22 @ 14:06 by Pili Weston NP) H/O arthroscopic knee surgery Family History Family History (Updated 12/13/22 @ 13:52 by Pili Weston NP) Unknown No problems noted. Social History Social History (Updated 12/13/22 @ 13:53 by Pili Weston NP) Social History: The patient stated that he smokes a pack a cigarettes a day. He lives with his . He has 1 child. He works at [employer]. Code status full code Smoking packs per day: 0.5 Smoking cigarettes per day: 10.0 Years smoked: 30 Smoking pack-years: 15.00 Smoking status: Current every day smoker Alcohol intake:
--- NOTE | 2022-12-13 15:03 | PCRCNOTE ---
spoke with RN about bringing pt a hospital CPAP unit after order was put in. RN stated that pt was being sent home and not to bother with bringing hospital CPAP unit down to pt.
== END 2022-12-13 17:06 | disposition home or self-care (01) ==
LOC: ANHED 08:45 → ANHIMU 11:48
PROVIDERS: Admitting Provider Internal Medicine; Emergency Provider Emergency Medicine; PCP Physician Assistant; Visit Provider Internal Medicine
DX: R07.9 Chest pain, unspecified (principal); I11.9 Hypertensive heart disease without heart failure; J44.9 Chronic obstructive pulmonary disease, unspecified; M17.12 Unilateral primary osteoarthritis, left knee; R94.31 Abnormal electrocardiogram [ECG] [EKG]; G47.33 Obstructive sleep apnea (adult) (pediatric); Z86.79 Personal history of other diseases of the circulatory system; F10.90 Alcohol use, unspecified, uncomplicated; F17.210 Nicotine dependence, cigarettes, uncomplicated; Z79.51 Long term (current) use of inhaled steroids; Z79.899 Other long term (current) drug therapy
CPT/HCPCS: 36415; 71046; 80053; 83690; 84484; 85025; 85380; 85610; 85730; 93005; 93306; 99285; A9270; G0378

== ENCOUNTER 2023-09-11 15:03 | Outpatient (CLI) | payer BC, SELFPAY ==
--- NOTE | ~2023-09-11 | CT_ITS ---
EXAMINATION: CT lung screening DATE: 09/11/2023 15:22 INDICATION: Z87.891 - Personal history of nicotine dependence TECHNIQUE: Computed tomography (CT) of the chest was performed without intravenous contrast. Addition al 3D reconstructions utilizing coronal maximum intensity projection (MIP) were performed. Automated exposure control and iterative reconstruction technique were employed. The dose-length product was 32 8.94 mGy-cm. COMPARISON: 09/08/2022 FINDINGS: Mild emphysema. No suspicious pulmonary nodules, pneumonia, pulmonary edema or other pulmonary infilt rates. No pleural effusion. Heart size normal. Atherosclerotic coronary artery calcifications unchang ed prior median sternotomy and coronary artery bypass grafting. No pericardial effusion. Thoracic aor ta is normal in caliber. No pathologically enlarged thoracic lymphadenopathy. Visualized upper abdome n is unremarkable. Mild thoracic spondylosis. IMPRESSION: 1. Lung-RADS category 1: Negative. Continue annual screening with noncontrast low-dose chest CT in 12 months. Reviewed, dictated and finalized at location A. THERAPIST IMPRESSION: 1. Lung-RADS category 1: Negative. Continue annual screening with noncontrast l ow-dose chest CT in 12 months.
== END 2023-09-11 15:04 | disposition home or self-care (01) ==
PROVIDERS: PCP Physician Assistant; Visit Provider Physician Assistant
DX: Z12.2 Encounter for screening for malignant neoplasm of respiratory organs (principal); Z87.891 Personal history of nicotine dependence
CPT/HCPCS: 71271

== ENCOUNTER → 2023-12-05 15:10 | Outpatient (CLI) | payer BC, SELFPAY ==
--- NOTE | ~2023-12-05 | XR_ITS ---
EXAM: XR knee RT 3V DATE: 12/05/2023 16:37 HISTORY: KNEE PAIN . COMPARISON: None available. FINDINGS: Normal mineralization. No fracture or dislocation. No lytic or blastic lesion. Moderate me dial joint space narrowing. Mild tricompartmental osteophytosis. No erosion or periosteal change. Min imal atherosclerotic calcifications. Surgical clips in the medial knee soft tissues. IMPRESSION: Tricompartmental right knee osteoarthritis, moderate in the medial compartment. Reviewed, dictated and finalized at location K.
== END ==
PROVIDERS: PCP Physician Assistant; Visit Provider Physician Assistant
DX: M17.11 Unilateral primary osteoarthritis, right knee (principal)
CPT/HCPCS: 73562

== ENCOUNTER 2023-12-28 12:46 | Emergency (ER) | payer BC, SELFPAY | END 2023-12-28 12:56 | disposition left against medical advice (07) | PROVIDERS: Emergency Provider Nurse Practitioner; PCP Physician Assistant | DX: Z53.21 Procedure and treatment not carried out due to patient leaving prior to being seen by health care provider (principal) | CPT/HCPCS: 99199 ==

== ENCOUNTER 2023-12-28 13:12 | Emergency (ER) | payer BC, SELFPAY ==
--- NOTE | ~2023-12-28 | CT_ITS ---
EXAMINATION: CT abd pelvis lumbar wo con DATE: 12/28/2023 16:31 INDICATION: Flank pain. TECHNIQUE: Computed tomography (CT) of the abdomen and pelvis and lumbar spine was performed without intravenous contrast. Automated exposure control and iterative reconstruction technique were employed . The dose-length product was 997.89 mGy-cm. COMPARISON: CT abdomen and pelvis 10/09/2019 FINDINGS: CT ABDOMEN AND PELVIS: The visualized portions of the lung bases demonstrate minimal atelectasis on t he left. No pleural effusion. The heart size is normal. There are coronary artery calcifications. Med genia sternotomy wires are noted. No pericardial effusion the liver, gallbladder, spleen, pancreas, and right adrenal gland are normal. There is a 17 mm mass in left adrenal gland soft tissue attenuation, stable from 10/09/2019, likely an adenoma. There is a 17 mm cyst in right kidney. There is a 7 mm hype rdense cyst in left kidney. There is a 3 mm stone in left kidney. The prostate is moderately enlarged . There is diverticulosis of the colon without evidence of diverticulitis. The appendix is normal. Th ere are no dilated loops of bowel. Aortic atherosclerosis is noted. There are no pathologically enlar ged lymph nodes. There is no free intraperitoneal fluid. CT LUMBAR SPINE: There is 4 degrees dextrocurvature of thoracolumbar spine. There are Schmorl's nodes at multiple levels. There is mildly decreased disc height at L4-L5. The following disc levels are sp ecifically discussed: L1-L2: The disc is bulging. There is severe right and moderate left facet joint osteoarthritis. There is mild bilateral neural foraminal stenosis. There is mild central canal stenosis. L2-L3: The disc is bulging. There is moderate bilateral facet joint osteoarthritis. There is moderate right and mild left neural foraminal stenosis. There is mild central canal stenosis. L3-L4: The disc is bulging. There is severe bilateral facet joint osteoarthritis. There is moderate b ilateral neural foraminal stenosis. There is mild central canal stenosis. L4-L5: The disc is bulging. There is severe right and moderate left facet joint osteoarthritis. There is moderate bilateral neural foraminal stenosis. There is mild central canal stenosis. L5-S1: The disc is bulging. There is moderate bilateral facet joint osteoarthritis. There is mild noah ateral neural foraminal stenosis. There is mild central canal stenosis. IMPRESSION: 1. 3 mm nonobstructing left kidney stone. 2. Moderate lumbar spondylosis. Reviewed, dictated and finalized at location E.
[2023-12-28 13:20] VITALS: BP 148/62; PULSE 60; RESP 15; TEMP 36.4; O2SAT 97
[2023-12-28 15:38] LABS: Basophils Percent Auto 0.4 % (0.2-1.2); Eosinophils Absolute Auto 0.3 K/mm3 (0-0.3); Eosinophils Percent Auto 3.2 % (0-4.4); Hemoglobin 16.6 g/dL (14.0-18.0); Immature Granulocyte Absolute 0.02 K/mm3 (0.00-0.031); Immature Granulocyte Percent A 0.2 % (0-0.5); Lymphocytes Absolute Auto 3.04 K/mm3 (0.9-3.2); Lymphocytes Percent Auto 32.8 % (18.3-44.2); Mean Corpuscular HGB Conc 33.2 g/dl (32-36); Mean Corpuscular Hemoglobin 31.3 pg (26-34); Mean Corpuscular Volume 94.3 fl (80-100); Mean Platelet Volume 11.1 fl (7.4-10.4); Monocytes Absolute Auto 0.7 K/mm3 (0.1-0.6); Monocytes Percent Auto 7.6 % (2.6-8.5); Neutrophils Absolute Auto 5.2 K/mm3 (1.3-6.7); Neutrophils Percent Auto 55.8 % (45.5-73.1); Platelet Count Result 176 k/mm3 (150-375); Red Cell Distribution Width 12.6 % (11.5-14.5); White Blood Count 9.3 K/mm3 (4.5-10.0)
[2023-12-28 15:40] LABS: Appearance Urine Clear (Clear); Bilirubin Urine Negative (Negative); Blood Urine Negative (Negative); Color Urine Yellow (Yellow); Glucose Urine UA Negative (Negative); Ketones Urine Negative (Negative); Leukocyte Esterase Ur Negative LEU/UL (Negative); Nitrate Urine Negative (Negative); Protein Urine Negative (Negative); Specific Grav Ur 1.017 (1.001-1.035)
[2023-12-28 15:48] LABS: Alanine Aminotransferase 19 U/L (6-50); Albumin Level 4.6 g/dL (3.5-5.1); Alkaline Phosphatase 89 U/L (38-126); Anion Gap 6 mmol/L (4-12); Aspartate Amino Transferase 19 U/L (17-59); Bilirubin,Total 0.9 mg/dL (0.2-1.3); Blood Urea Nitrogen 19 mg/dL (9-20); Calcium 9.4 mg/dL (8.4-10.2); Carbon Dioxide 27 mmol/L (22-30); Chloride 106 mmol/L (98-107); Estimated CRCL calculation 106 ml/min; Estimated Glomerular Filt Rate > 60; Glucose 97 mg/dL (65-110); Potassium 4.3 mmol/L (3.4-5.0); Sodium 139 mmol/L (137-145)
--- NOTE | 2023-12-28 15:56 | ED.BACK ---
HPI - Back Pain/Injury General Chief Complaint: Back Pain/Injury Stated Complaint: back pain Time Seen by Provider: 12/28/23 14:37 History of Present Illness HPI Narrative: Patient is a 58-year-old male with history of prior triple-vessel CABG, hypertension, kidney stones here with lower back pain. He states that he was up and moving around his home around 530 this morning when he began having sudden onset lower back pain. He notes that is located over bilateral flank and is a sharp pain. The pain seems to worsen with standing and walking. He denies any dysuria, hematuria. He denies any trauma. No prior history of lower back pains. No recent change in physical activity. Patient denies any bowel or bladder incontinence. He was able to urinate here without difficulty. He denies any associated abdominal pain. He denies any lower extremity numbness or weakness. No saddle anesthesia. No prior history of IV drug use or cancer. Related Data Home Medications Medication Instructions Recorded Confirmed albuterol sulfate 90 mcg/actuation 2 puff inhalation Q4H 10/27/19 12/22/23 aerosol inhaler aspirin 81 mg tablet,delayed 81 mg PO 02/07/23 12/22/23 release atorvastatin 40 mg tablet 40 mg PO 02/07/23 12/22/23 metoprolol succinate 25 mg 25 mg PO 02/07/23 12/22/23 tablet,extended release 24 hr Allergies Allergy/AdvReac Type Severity Reaction Status Date / Time No Known Allergies Allergy Verified 12/28/23 13:22 Review of Systems Review of Systems: All systems reviewed & are unremarkable except as noted in HPI and below PMFSH Past Medical History Medical History Acute pain of right knee Body mass index [BMI] 29.0-29.9, adult (09/16/15) COPD (chronic obstructive pulmonary disease) Effusion of knee joint, left History of hypertension Lateral epicondylitis, right elbow Prepatellar bursitis of right knee Primary osteoarthritis of left knee Surgical History Surgical History H/O arthroscopic knee surgery History of open heart surgery Family History Family History Unknown No problems noted. Social History Social History (Updated 12/22/23 @ 15:06 by Denise Walton) Social History: The patient stated that he smokes a pack a cigarettes a day. He lives with his . He has 1 child. He works at [employer]. Code status full code Smoking packs per day: 0.5 Smoking cigarettes per day: 10.0 Years smoked: 30 Smoking pack-years: 15.00 Smoking status: Current every day smoker Alcohol intake: current Substance use: never Do You Feel Safe in your Home?: Yes Lack of Transportation: No Lack of Food: Never True Current Housing: I Have Housing Concerned About Future Housing: No Difficulty Paying Gas/Electric Bills: No Difficulty Paying for Meds: No Currently Unemployed: No Education: Trade/Vocational Certificate Difficulty w/ Childcare or Family Care: No Gender identity (if verbalized by the patient): Male Exam Narrative: GENERAL: Well-appearing, well-nourished, and in no acute distress. HEAD: Normocephalic, atraumatic. EYES: PERRLA and EOMI. ENT: Nares clear. Mucous membranes moist. NECK: Supple. CHEST: Clear to auscultation. No respiratory distress. HEART: Regular rate and rhythm. Normal peripheral pulses. ABDOMEN: Soft, nontender, nondistended. Bilateral CVA tenderness present. EXTREMITIES: Normal range of motion. No edema. No midline lumbar tenderness or stepoffs. Bilateral paraspinal lumbar tenderness. SKIN: Warm, dry, no rash. NEURO: No focal deficits. Alert and oriented x3. PSYCH: Normal mood and affect. Course Course Emergency Course: Chart review performed. Patient here with BL flank pain 10/10, history of kidney stones. Triage vitals show HTN, otherwise normal. Patient seen evaluate
[2023-12-28] MEDS: MORPHINE SULFATE (*CRX) 4 MG/ML INJ IV PUSH (16:03)
[2023-12-28] MEDS: ONDANSETRON INJ 4 MG/2 ML VIAL IV PUSH (16:03)
[2023-12-28] MEDS: LACTATED RINGERS 1,000 ML 999 ML IV CONT (16:03)
[2023-12-28 17:20] LABS: Add Urine Microscopic? NO
[2023-12-28 17:42] VITALS: BP 151/78; PULSE 53; RESP 18; O2SAT 97
== END 2023-12-28 17:45 | disposition home or self-care (01) ==
PROVIDERS: Emergency Provider Student in an Organized Health Care Education/Training Program; PCP Physician Assistant
DX: M54.50 Low back pain, unspecified (principal); I10 Essential (primary) hypertension; J44.9 Chronic obstructive pulmonary disease, unspecified; M17.12 Unilateral primary osteoarthritis, left knee; F17.210 Nicotine dependence, cigarettes, uncomplicated; Z95.1 Presence of aortocoronary bypass graft; Z87.442 Personal history of urinary calculi; Z79.82 Long term (current) use of aspirin
CPT/HCPCS: 36415; 72131; 74176; 80053; 81003; 85025; 96361; 96374; 96375; 99284; J2270; J2405; J7120

== ENCOUNTER 2025-05-14 09:42 | Outpatient (CLI) | payer BC, SELFPAY ==
--- OUTSIDE RECORDS SUMMARY | 2025-05-14 10:30 | XMS_ITS | Clinical Summary ---
Author Organization [facility] Address [address] [place] [address] Care Team Providers Care Ethnology Professor Name Role Phone None, Provider MD Primary Care Provider Unavaila ble Allergies No known active allergies Medications CHANTIX CONTINUING MONTH ЕКАТЕРИНА 1 MG tablet Take 1 mg by mouth 2 (two) times daily. 5 03/24/2019 Active meloxicam 15 MG tablet Take 15 mg by mouth daily. 2 05/08/2019 Active lisinopril 10 MG tablet Take 10 mg by mouth daily. 1 02/28/2019 Active cyclobenzaprine 10 MG tablet Take 10 mg by mouth 3 (three) times daily as needed. 0 10/03/2018 Active Social History Tobacco Use Types Packs/Day Years Used Date Smoking Tobacco: Every Day Cigarettes Smokeless Tobacco: Never Alcohol Use Standard Drinks/Week Comments Yes 10 (1 standard drink = 0.6 oz pu re alcohol) social Sex and Gender Information Value Date Recorded Sex Assigned at Not on file Legal Sex Male 3:28 PM CDT Gender Identity Not on file Sexual Orientation Not on file Last Filed Vital Signs Vital Sign Reading Time Taken Comments Blood Pressure 131/74 05/20/2019 10:11 AM CDT Pulse 72 05/20/2019 10:11 AM CDT Temperature 37.2 C (99 F) 05/20/2019 10:06 AM CDT Respiratory Rate 17 05/20/2019 10:11 AM CDT Oxygen Saturation 97% 05/20/2019 10:11 AM CDT Inhaled Oxygen Concentration - - Weight 115.7 kg (255 lb) 05/20/2019 6:46 AM CDT Height 180.3 cm (5' 11) 05/20/2019 6:46 AM CDT Body Mass Index 35.57 05/20/2019 6:46 AM CDT Plan of Treatment Health Maintenance Due Date Last Done Comments Colorectal Cancer Screening Colonoscopy (10 Years) 1963 Annual Physical 1966 Hepatitis C 1981 DTaP, Tdap and Td Vaccines ( 1 - Tdap) 1982 Pneumococcal Vaccine: 50+ Ye ars (1 of 2 - PCV) 1982 Zoster Vaccines (1 of 2) 2013 COVID-19 Vaccine (1 - 2023-2 5 season) 2025 RSV Immunization or 60+ Years (1 - 1-dose 75+ series) 2038 Meningococcal B Vaccine Aged Out No l onger eligible based on patient's age to complete this topic Meningococcal Vaccine Aged Out No ron vinita eligible based on patient's age to complete this topic RSV Immunizations Under 20 Months Aged Out No longer eligible based on patient's age to complete this topic Insurance Care Teams Ethnology Professor Relationship Specialty Start Date End Date None, Provider, PCP - General 05/17/19
--- OUTSIDE RECORDS SUMMARY | 2025-05-14 10:30 | XMS_ITS | Encounter Summary ---
Author Organization [facility] Healthcare Address [address] [place] [address] Care Team Providers Care Subway Operator Name Role Phone Estefani Ohara Primary Care Provider [phone] Yousuf Morales MD Unavailable [phone] Eren Wallace MD Unavailable Reason for Visit * Reason Onset Date Comments Abdominal Pain 05/13/2025 Encounter Details Date Type Department Care Team (Late st Contact Info) Description 05/13/2025 Nurse Triage [facility] Family Medicine [address] [place] [address] Estefani Ohara PA [address] [place] [address] Social History Tobacco Use Types Packs/Day Years Used Date Smoking Tobacco: Every Day Cigarettes 0.3 40 Smokeless Tobacco: Never Comments:On welbutrin Alcohol Use Standard Drinks/Week Comments Yes 0 (1 standard drink = 0.6 oz pur e alcohol) OASIS D0700: Social Isolation Answer Da te Recorded Frequency of experiencing loneliness or isolatio n Never 04/14/2023 Social Connection and Isolation Panel Answer Date Recorded In a typical week, how many times do you talk on the phone with family, friends, or neighbors? More than three times a week 04/04/2023 How often do you get togethe r with friends or relatives? More than three times a week 04/04/2023 How often do you attend chur ch or hindu services? 1 to 4 times per year 04/04/2023 Do you belong to any clubs o r organizations such as cheondoism groups, unions, fraternal or athletic groups, or school groups? No 04/04/2023 How often do you attend meet ings of the clubs or organizations you belong to? Never 04/04/2023 Are you , , di vorced, , never , or living with a partner? 04/04/2023 AUDIT-C Answer Date Recorded Q1: How often do you have a drink containing alc ohol? Monthly or less 12/16/2024 Q2: How many drinks containi ng alcohol do you have on a typical day when you are drinking? 5 or 6 12/16/2024 Q3: How often do you have si x or more drinks on one occasion? Never 12/16/2024 Overall Financial Resource Strain (CARDIA) Answe r Date Recorded How hard is it for you to pa y for the very basics like food, housing, medical care, and heating? Not hard at all 04/04/2023 PHQ-2 Answer Date Recorded PHQ-2 Total Score (If total score is 3 or more points, staff should administer the PHQ-9) 2 12/16/2024 Hunger Vital Sign Answer Date Recorded Within the past 12 months, y ou worried that your food would run out before you got the money to buy more. Never true 04/04/20 23 Within the past 12 months, t he food you bought just didn't last and you didn't have money to get more. Never true 04/04/2023 PRAPARE - Transportation Answer Date Re corded In the past 12 months, has l ack of transportation kept you from medical appointments or from getting medications? No 09/2022 In the past 12 months, has l ack of transportation kept you from meetings, work, or from getting things needed for daily living? No 04/04/2023 Housing Stability Vital Sign Answer Tom e Recorded In the last 12 months, was t here a time when you were not able to pay the mortgage or rent on time? No 04/04/2023 In the last 12 months, how many places have you lived? 1 04/04/2023 In the last 12 months, was t here a time when you did not have a steady place to sleep or slept in a skilled nursing (including now)? No 04/04/2023 Personal Safety Answer Date Recorded Have you ever been in or are you currently in a harmful physical or emotional relationship or is someone making you feel afraid or unsafe? 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 Pt was talking in normal tone with no distress noted to voice. Pt reports upper abdominal pain right below rib cage ongoing for a couple months that isworsening. Pain comes every morning around 8am and is 8/10 on pain scale and lasts an hour or two. Pt takes Tylenol to take the edge off of it, but pain is then persistent all day every day at a 6/10 on pain scale. Pt also has symptoms of nausea and bloating. No reports of fever. Eating does not amplify symptoms. BMs are normal. Reports that the left side is worse than the right and it feels like someone is putting their fingers under my rib cage and trying to lift it up. Spoke to PCP and received verbal orders for pt to get STAT Lipase, CMP, and CBC at hospital lab now and then to come into office at 1p. Informed pt of what provider stated and he replied there is no way I can get awayto do that today. I can go tomorrow to [place] and then come into office tomorrow afternoon but that is the soonest I can do. Labs placed and faxed to [facility] and pt scheduled for tomorrow at 1pm. * Telephone Encounter - Sahara Albert RN - 05/13/2025 9:46 AM CDT Reason for Conversation Abdominal Pain Started 2 months ago, symptoms getting worse. Background Moderate constant abdominal pain under both sides of ribcage, left worse than right. describes as someone cupping my ribs and trying to lift them up. Right side has dull pain. Feels like something oninside of ribs on left side. Nausea started 1 week with bloating. Denies back pain, diarrhea, fever, urination pain, difficulty breathing, OR vomiting. Disposition Go to ED Now, See More Appropriate Protocol Abdiel kasper. Estefani Ohara PA contacted via secure chat for ED disposition consult. Recommendation from provider:Other: staff will reach out to patient. Please advise Reason for Disposition Pain is mainly in upper abdomen (if needed ask: 'is it mainly above the belly button?') Pain lasting > 10 minutes and over 50 years old No Initial Assessment on file. No Additional Information on file. Protocols Used Abdominal Pain - Beagi-Bymgs-PE Abdominal Pain - Rdzz-Cjufs-UB * Telephone Encounter - Sahara Albert RN - 05/13/2025 9:45 AM CDT Regarding: moderate/severe abdominal pain under ribcage, nausea ----- Message from Sandhya Alamo sent at 05/13/2025 9:41 AM CDT ----- Symptom Based Call Chief Complaint(s): moderate/severe abdominal pain under ribcage, nausea Duration: a couple months, getting worse What type of symptom(s) is the patient experiencing? Red Flag. Is the patient concerned they are experiencing a medical emergency requiring an ambulance? No Additional Comments: patient stated pain has been present for about two months, pain is getting worse and starting to effect both sides making it difficult to lay on either side. Patient stated pain is between moderate and severe Does message need to be routed? Yes-Action Needed documented in this encounter Plan of Treatment Not on file documented as of this encounter Visit Diagnoses Not on filedocumented in this encounter Care Teams Subway Operator Relationship Specialty Start Date End Date Estefani Ohara PA [address] [place] [address] PCP - General Internal Medicine 02/08/19 Yousuf Morales MD [address] [place] [address] Surgeon Cardiothoracic Surgery 04/07/23 Eren Wallace MD [address] [place] [address] Consulting Physician Cardiology 04/07/23 documented as of this encounter
--- OUTSIDE RECORDS SUMMARY | 2025-05-14 10:30 | XMS_ITS | Encounter Summary ---
Author Organization [facility] Healthcare Address [address] [place] [address] Care Team Providers Care Order Taker Name Role Phone Estefani Ohara Primary Care Provider [phone] Yousuf Morales MD Unavailable [phone] Eren Wallace MD Unavailable Encounter Details Date Type Department Care Team (Late st Contact Info) Description 05/13/2025 Orders Only [facility] Family Medicine [address] [place] [address] Estefani Ohara PA [address] [place] [address] Mixed hyperlipidemia (Primary Dx) Social History Tobacco Use Types Packs/Day Years [...] week 04/04/2023 How often do you attend [facility] or jehovah's witness services? 1 to 4 times per year 04/04/2023 Do you belong to any clubs o r organizations such as oriental orthodox groups, unions, fraternal or athletic groups, or [...] place to sleep or slept in a fdc (including now)? 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 Not on file Not on file documented as of this encounter Progress Notes * Lorelei Jamison LPN - 05/13/2025 10:59 AM CDT Order placed per PCP documented in this encounter Plan of Treatment Scheduled Orders Name Type Priority Associated Diagnoses Orde r Schedule Lipid panel Lab Routine Mixed hyperlipidemia Expected: 05/13/2025, Expires: 05/13/2026 documented as of this encounter Visit Diagnoses Diagnosis Mixed hyperlipidemia- Primary documented in this encounter Care Teams Order Taker Relationship Specialty Start Date End Date Estefani Ohara PA [address] [place] [address] PCP - General Internal Medicine 02/08/19 Yousuf Morales MD [address] [place] [address] Surgeon Cardiothoracic Surgery 04/07/23 Eren Wallace MD [address] [place] [address] Consulting Physician Cardiology 04/07/23 documented as of this encounter
--- OUTSIDE RECORDS SUMMARY | 2025-05-14 10:30 | XMS_ITS | Clinical Summary ---
Author Organization [facility] Address [address] [place] [address] Care Team Providers Care Spice Grinder Name Role Phone Estefani Ohara Primary Care Provider [phone] Yousuf Morales MD Unavailable [phone] Eren Wallace MD Unavailable Allergies No known active allergies Medications albuterol HFA (PROVENTIL HFA,VENTOLIN HFA,PROAIR HFA) 90 mcg/actuation inhalerIndicat ions:SOB (shortness of breath) INHALE 2 PUFFS BY MOUTH EVERY 6 HOURS NEEDED FOR WHEEZING 8.5 each 2 08/15/20 23 Active atorvastatin (LIPITOR) 40 mg tablet TAKE 1 TABLET BY MOUTH EVERY DAY 90 tablet 3 06/17/20 24 Active aspirin 81 mg enteric coated tablet TAKE 1 TABLET BY MOUTH EVERY DAY 90 tablet 3 06/17/20 24 Active varenicline tartrate (CHANTIX ЕКАТЕРИНА) 0.5 mg (11)- 1 mg (42) tablet Take as instructed on package 53 tablet 07/17/20 24 Active Additional Information Patient not taking.Reported on 12/16/2024 meloxicam (MOBIC) 15 mg tablet TAKE 1 TABLET (15 MG TOTAL) BY MOUTH DAILY. 90 tablet 1 12/20/19 25 Active metoprolol tartrate (LOPRESSOR) 25 mg immediate release tablet TAKE 1/2 OF A TABLET (12.5 MG TOTAL) BY MOUTH TWICE A DAY 90 tablet 1 04/22/20 25 Active metoprolol tartrate (LOPRESSOR) 25 mg immediate release tablet TAKE 1/2 OF A TABLET (12.5 MG TOTAL) BY MOUTH TWICE A DAY 90 tablet 1 11/06/19 25 025 Discontinued Active Problems Patient Care Coordination No te Formatting of this note migh t be different from the original. CAD for BIC Problem Noted Date Diagnosed Date Prostate cancer screening 12/29/2024 Hx of CABG 11/14/2023 Cigarette smoker 06/10/2023 Assessment & Plan (07/28/2024 8:48 PM SUPERVISOR [employer]WORKING): Encouraged smoking cessation. Discussed 3 minutes. Reviewed options for assistance with cessation. Pt desires assistance with cessation. Discussed options at length. Will start Chantix Starter Pack. Take as directed. Reviewed risks, benefits, alternatives, side effects and proper use. Encouraged to decreased cigs as tolerated. Plan to stay on the Chantix 4-6 months, even if successful in stopping quickly. F.u if any increased emotional sxs or suicidal thoughts Assessment & Plan (02/01/2024 9:12 PM CDT): Pt desires assistance with cessation. Discussed options at length. Will start Wellbutrin. No seizure history. Reviewed risks, benefits, alternatives, side effects and proper use. Take first thing in the am to avoid sleep disturbances. Encouraged to decreased cigs as tolerated. Plan to stay on the Wellbutrin for 4-6 months, even if successful in cessation quickly. F.u if any increased emotional sxs or suicidal thoughts Assessment & Plan (11/30/2023 2:58 PM CDT): Encouraged smoking cessation. Discussed 3 minutes. Reviewed options for assistance with cessation. Reviewed usp sequela associated with smoking. Pt declines assistance at this time but may contact the office at anytime for further help as they desire. Assessment & Plan (06/10/2023 12:35 PM CDT): Pt desires assistance with cessation. Discussed options at length. Will start Wellbutrin. No seizure history. Reviewed risks, benefits, alternatives, side effects and proper use. Take first thing in the am to avoid sleep disturbances. Encouraged to decreased cigs as tolerated. Plan to stay on the Wellbutrin for 4-6 months, even if successful in cessation quickly. F.u if any increased emotional sxs or suicidal thoughts BMI 35.0-35.9,adult 05/31/2023 Assessment & Plan (12/16/2024 3:03 PM CDT): Discussed the patient's BMI. The BMI is above average. BMI management plan is completed. BMI Follow-up includes: nutrition counseling, exercise counseling and education provided. Assessment & Plan (07/28/2024 8:49 PM SUPERVISOR [employer]WORKING): Discussed the patient's BMI. The BMI is above average. BMI management plan is completed. BMI Follow-up includes: nutrition counseling, exercise counseling and education provided. Assessment & Plan (02/01/2024 9:13 PM CDT): Discussed the patient's BMI. The BMI is above average. BMI management plan is completed. BMI Follow-up includes: nutrition counseling, exercise counseling and education provided. Assessment & Plan (11/30/2023 2:58 PM CDT): Discussed the patient's BMI. The BMI is above average. BMI management plan is completed. BMI Follow-up includes: nutrition counseling, exercise counseling and education provided. Assessment & Plan (05/31/2023 3:25 PM CDT): Discussed the patient's BMI. The BMI is above average. BMI management plan is completed. BMI Follow-up includes: nutrition counseling, exercise counseling and education provided. Coronary artery disease invo lving [place] [facility] with unstable angina pectoris 03/23/2023 Overview (06/10/2023): Dr. Morales -- [facility] -- 03/2023 CABG X 3 (LEONARD to LAD, radial artery to obtuse marginal branch, saphenous vein graft to right coronary artery) Assessment & Plan (07/28/2024 8:49 PM SUPERVISOR [employer]WORKING): Status post CABG x3 in 2022. He is on a statin, beta-meghna and an aspirin Assessment & Plan (02/01/2024 9:12 PM CDT): Dr. Morales -- [facility] -- 03/2023 CABG X 3 (LEONARD to LAD, radial artery to obtuse marginal branch, saphenous vein graft to right coronary artery) Patient is on statin, beta-meghna and aspirin. Assessment & Plan (06/10/2023 12:34 PM CDT): Status post CABG x3 in March of 2023. He is declined cardiac rehab. Currently on Plavix and aspirin along with his beta-meghna and statin. Continue per Cardiology. [place] prefer to transition to the [facility] group and shallow. Will make the referral. This will be placed in an external referral and not attached to this note because transitioning our computer system. Abnormal stress test 02/22/2023 Chronic pain of left knee 12/18/2022 Assessment & Plan (12/18/2022 4:05 PM CDT): Patient has done well on Mobic in the past and requests refill. Dermatitis 10/01/2022 Assessment & Plan (10/02/2022 9:03 PM SUPERVISOR [employer]WORKING): This is a significant, separately identifiable problem that was evaluated and managed on the same day as the wellness exam Patient has had a rash on his left thigh for about 3 weeks. States it probably has come and gone in the past. Question a dermatitis versus psoriasis. Will start with steroid cream see if it resolves if it does not may consider referral to Dermatology. Will also check an MARTY Colon cancer screening declined 07/03/2021 Assessment & Plan (07/28/2024 8:50 PM SUPERVISOR [employer]WORKING): Patient declines colon cancer screening. Patient understands the risk of undiagnosed cancer and what can result Assessment & Plan (02/01/2024 9:11 PM CDT): Patient had adenomas with his last colonoscopy in 2020. Was encouraged to follow-up in 2 years. He is continued to refuse to schedule. Reviewed again pre cancer potential of adenomas in the importance of early detection. He may call at any time to get scheduled for a follow-up Assessment & Plan (06/10/2023 12:32 PM CDT): Patient is due for colon cancer screening follow-up. Needed to be repeated in May of 2021 but patient continues to refuse to schedule at this point. Reminded him of the importance of early detection for better outcome. He may call at any time and we will help him get scheduled. Assessment & Plan (12/18/2022 4:03 PM CDT): Patient still declines colonoscopy follow-up. Reviewed risks of not completing screenings and delay in diagnosis of any cancer. He verbalizes understanding Assessment & Plan (10/02/2022 9:06 PM SUPERVISOR [employer]WORKING): Due to repeat colonoscopy. Patient declines at this point and understands the importance of follow-up based on the previous findings. Assessment & Plan (07/03/2021 7:13 AM CDT): Patient is due for colonoscopy repeat. Last 1 was done in 2019 and had adenomas. Offered to reschedule for him but he declines at this time. Reviewed the risks of undiscovered or delay in discovery of cancer pre cancer changes. He voices understanding will call when he is ready to do it. Nocturnal hypoxemia 11/24/2020 Assessment & Plan (11/24/2020 3:37 PM CDT): The patient states that he did turn in an overnight pulse ox to his residential pest control technician at [facility] today and the results are not yet available. The patient was encouraged to shared these results with the sleep lab so we may determine if oxygen therapy with CPAP therapy as needed. Other emphysema 10/08/2020 Assessment & Plan (07/28/2024 8:50 PM SUPERVISOR [employer]WORKING): Patient with COPD. Continue per Dr. Cruz pulmonary at [facility]. Currently declines any inhalers and just using the albuterol rescue p.r.n. Assessment & Plan (02/01/2024 9:11 PM CDT): Strongly encouraged complete smoking cessation. Dr. Vargas at [facility] manages his COPD. Currently doing well without medication Assessment & Plan (06/10/2023 12:32 PM CDT): Encouraged smoking cessation. Continue per Pulmonary Dr. Cruz. Continue Bevespi and Spiriva. Assessment & Plan (12/18/2022 4:02 PM CDT): Continue per pulmonology Dr. Rider at [facility]. Currently on Bevespi and albuterol p.r.n.. States breathing much easier with the weight loss. Strongly encouraged smoking cessation Assessment & Plan (10/02/2022 9:05 PM SUPERVISOR [employer]ONWORKING): Continue per Dr. Rider's pulmonology at [facility]. On Bevespi and Spiriva. Continue to monitor closely. Assessment & Plan (07/03/2021 7:12 AM CDT): Continue per Dr. Cruz he states he feels best on the Bevespi and Spiriva. He is to follow up with Dr. Catheirne for any other questions. Encouraged smoking cessation. Assessment & Plan (10/26/2020 3:43 PM SUPERVISOR [employer]WORKING): Treated in ER. Feeling better but still having SOB> He stopped the Symbicort. Taking the Spiriva and thinks it helps. Not using albuterol to rescue. Will await recommendation from Pulmonary Assessment & Plan (10/10/2020 2:16 PM SUPERVISOR [employer]WORKING): Complete the levofloxin and Prednisone as instructed in the ER. Continue Sumbicort. Add Spiriva. Continue prn Albuterol Stop smoking. Refer to Pulmonary as pt has increasing sxs prior to exacerbation. Fatty liver 08/01/2020 Overview (08/01/2020): 06/2020 Ct -- moderate steatosis noted. Assessment & Plan (02/01/2024 9:10 PM CDT): Continue with weight loss effort. Last imaging was in 2019. Discussed repeat imaging. Will consider ultrasound next visit Assessment & Plan (08/01/2020 2:50 PM SUPERVISOR [employer]WORKING): Labs are stable. Follow fatty liver diet. If discoloration or pain continues, will consider referral to GI/account strategist. Multiple rib fractures 08/01/2020 Overview (08/01/2020): Summer 2019. Still not healed per 06/2020 CT. Assessment & Plan (08/01/2020 3:04 PM SUPERVISOR [employer]WORKING): Still having discomfort at times and they appear to be incompletely healed after almost 6 months --- Will look into referral to see if other intervention is available--- Mixed hyperlipidemia 08/01/2020 Assessment & Plan (07/28/2024 8:52 PM SUPERVISOR [employer]WORKING): Encouraged patient to follow low fat/low chol diet like the Mediterranean diet. Increase good fats in the diet. Increase exercise. Monitor labs as needed. Continue statin Assessment & Plan (02/01/2024 9:10 PM CDT): Encouraged patient to follow low fat/low chol diet like the Mediterranean diet. Increase good fats in the diet. Increase exercise. Monitor labs as needed. Continue atorvastatin Assessment & Plan (06/10/2023 12:32 PM CDT): Encouraged patient to follow low fat/low chol diet like the Mediterranean diet. Increase good fats in the diet. Increase exercise. Monitor labs as needed. Continue atorvastatin 40 Assessment & Plan (12/18/2022 4:02 PM CDT): Encouraged patient to follow low fat/low chol diet like the Mediterranean diet. Increase good fats in the diet. Increase exercise. Monitor labs as needed. Discussed starting statin. Reviewed risks benefits alternatives side effects and proper use. Willing to start Crestor 20. May couple it with Co Q10 available [id number]. Recheck liver enzymes in a month and let bid panel in 4-6 months. Assessment & Plan (10/02/2022 9:01 PM SUPERVISOR [employer]ONWORKING): Encouraged patient to follow low fat/low chol diet like the Mediterranean diet. Increase good fats in the diet. Increase exercise. Monitor labs as needed. Assessment & Plan (07/03/2021 7:11 AM CDT): Encouraged patient to follow fat/low chol diet like the Mediterranean diet. Increase good fats in the diet. Increase exercise. Monitor labs as needed. Assessment & Plan (08/01/2020 3:05 PM SUPERVISOR [employer]ONWORKING): Encouraged patient to follow fat/low chol diet like the Mediterranean diet. Increase good fats in the diet. Increase exercise. Monitor labs as needed. Discussed statin -- he wants to try to change diet and recheck in 3 months before starting. Abdominal pain 05/30/2020 Assessment & Plan (08/01/2020 2:49 PM SUPERVISOR ORNAMENTAL [employer]ONWORKING): Labs and CT did not reveal underlying cause. Adrenal glands have returned to normal or other reading was an over-read. Has known fatty liver. Will monitor closely. If persists, consider referral to GI. Monitor fatty liver diet. Assessment & Plan (05/30/2020 10:39 PM CDT): This is a significant, separately identifiable problem that was evaluated and managed on the same day as the wellness exam Persistent abdominal pain with discoloration around the umbilicus. It appears to have more vascularity in the area and a little darker than the normal area but not a true bruise. Notable tenderness in the left side. Recommend checking labs for adrenal gland and pancreas. Check CT abd/pelvis/adrenal glands. If has increased pain or sxs needs to followup immediately. JYOTSNA on CPAP 05/25/2020 Overview (10/10/2020): Sleep Study with Dr. Magaña 2019. Assessment & Plan (07/03/2021 7:11 AM CDT): Continue with CPAP Assessment & Plan (11/24/2020 3:37 PM CDT): The patient will continue with CPAP therapy at 18 cm water pressure to treat obstructive sleep apnea. The patient denied need for supplies. The [employer] company is [employer]. The patient was ordered a new mask and head gear. The patient is benefitting from CPAP therapy. Assessment & Plan (10/26/2020 3:43 PM SUPERVISOR [employer]MENTAL IRONWORKING): Continue per Dr. Magaña/Sleep. 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 Assessment & Plan (10/10/2020 2:15 PM SUPERVISOR [employer]MENT[employer]ONWORKING): Encouraged to nightly use the CPAP and will wait for results/recommendations. Assessment & Plan (05/30/2020 10:40 PM CDT): This is a significant, separately identifiable problem that was evaluated and managed on the same day as the wellness exam Refer to Pulmonary for sleep study Adrenal hyperplasia 01/27/2020 Overview (08/01/2020): 01/2020 -- noted on CT 06/2020 -- no longer noted on CT. Serum levels were normal. Assessment & Plan (08/01/2020 3:00 PM SUPERVISOR [employer]RNAMENTAL [employer]ONWORKING): Resolved per 06/2020 CT Assessment & Plan (05/30/2020 10:43 PM CDT): Encourage to get the labs ordered and will repeat imagaging. Discussed referral to Endocrine pending the results but pt would prefer to wait for labs. Assessment & Plan (01/27/2020 2:28 PM CDT): Check labs. May need additional imaging vs referral to Endocrine Annual physical exam 01/27/2020 Assessment & Plan (07/28/2024 8:51 PM SUPERVISOR [employer]MENT[employer]ONWORKING): Encouraged healthy lifestyle, good nutrition and exercise. Encouraged Calcium and Vitamin D and weight bearing exercise for bone health. Reviewed immunizations Reviewed age appropirate screenings. Assessment & Plan (02/01/2024 9:12 PM CDT): Encouraged healthy lifestyle, good nutrition and exercise. Encouraged Calcium and Vitamin D and weight bearing exercise for bone health. Reviewed immunizations Reviewed age appropirate screenings. Assessment & Plan (10/02/2022 8:58 PM SUPERVISOR [employer]MENTAL [employer]ONWORKING): Encouraged healthy lifestyle, good nutrition and exercise. Encouraged Calcium and Vitamin D and weight bearing exercise for bone health. Reviewed immunizations Reviewed age appropirate screenings. Assessment & Plan (07/03/2021 7:11 AM CDT): Encouraged healthy lifestyle, good nutrition and exercise. Encouraged Calcium and Vitamin D and weight bearing exercise for bone health. Reviewed immunizations Reviewed age appropirate screenings. Assessment & Plan (05/30/2020 10:47 PM CDT): Encouraged healthy lifestyle, good nutrition and exercise. Encouraged Calcium and Vitamin D and weight bearing exercise for bone health. Reviewed immunizations Reviewed age appropirate screenings. Assessment & Plan (01/27/2020 2:28 PM CDT): Encouraged healthy lifestyle, good nutrition and exercise. Encouraged Calcium and Vitamin D and weight bearing exercise for bone health. Reviewed immunizations Reviewed age appropirate screenings. Morbid obesity 07/23/2019 Assessment & Plan (12/16/2024 3:03 PM CDT): Discussed the patient's BMI. The BMI is above average. BMI management plan is completed. BMI Follow-up includes: nutrition counseling, exercise counseling and education provided. Assessment & Plan (05/30/2020 10:41 PM CDT): Obesity is unchanged. Discussed the patient's BMI. The BMI is above average. BMI management plan is completed. BMI Follow-up includes: nutrition counseling, exercise counseling and education provided. Assessment & Plan (11/11/2019 3:32 PM CDT): Obesity is unchanged. Discussed the patient's BMI. The BMI is above average. BMI management plan is completed. BMI Follow-up includes: nutrition counseling, exercise counseling and education provided. Assessment & Plan (10/09/2019 10:21 AM SUPERVISOR [employer]WORKING): Obesity is unchanged. Discussed the patient's BMI. The BMI is above average. BMI management plan is completed. BMI Follow-up includes: nutrition counseling, exercise counseling and education provided. Assessment & Plan (07/27/2019 7:45 PM SUPERVISOR [employer]WORKING): Obesity is unchanged. Discussed the patient's BMI. The BMI is above average. BMI management plan is completed. BMI Follow-up includes: nutrition counseling, exercise counseling and education provided. SOB (shortness of breath) 03/25/2019 Assessment & Plan (06/10/2023 12:33 PM CDT): Symptoms have improved since weight loss. Continue per cardio and Pulmonary and follow-up if there is a significant increase in his symptoms. Assessment & Plan (10/26/2020 3:43 PM SUPERVISOR [employer]WORKING): See COPD exacerbation Assessment & Plan (10/10/2020 2:14 PM SUPERVISOR [employer]WORKING): Refer to Pulmonary. Pt prefers [facility]. Sxs were present before exacerbation. Assessment & Plan (05/30/2020 10:41 PM CDT): Continue albuterol prn and Symbicort. Suspect COPD with his smoking history Assessment & Plan (07/27/2019 7:46 PM SUPERVISOR [employer]WORKING): Uses Albuterol prn. No SOB with activity Essential hypertension 10/08/2018 Assessment & Plan (07/28/2024 8:51 PM SUPERVISOR [employer]ONWORKING): Bp is stable/in acceptable range for any co-morbidities. Encouraged to limit sodium intake and exercise for weight control. Assessment & Plan (02/01/2024 9:10 PM CDT): Bp is stable/in acceptable range for any co-morbidities. Encouraged to limit sodium intake and exercise for weight control. Patient is managing currently without medication. Continue to monitor closely Assessment & Plan (06/10/2023 12:33 PM CDT): Bp is stable/in acceptable range for any co-morbidities. Encouraged to limit sodium intake and exercise for weight control. Continue metoprolol 12.5 mg b.i.d.. Assessment & Plan (12/18/2022 4:01 PM CDT): Bp is stable/in acceptable range for any co-morbidities. Encouraged to limit sodium intake and exercise for weight control. BP is upper normal. Will continue monitor closely as weight loss helped and currently is managed without medication. Assessment & Plan (10/02/2022 8:58 PM SUPERVISOR [employer]ONWORKING): Bp is stable/in acceptable range for any co-morbidities. Encouraged to limit sodium intake and exercise for weight control. Patient has lost weight and blood pressure has been stable without medication. Continue to monitor Assessment & Plan (07/03/2021 7:10 AM CDT): Bp is stable/in acceptable range for any co-morbidities. Encouraged to limit sodium intake and exercise for weight control. Continue olmesartan. He has had since good amount of weight loss and that will also contributed positively to his blood pressure. Will continue monitor closely to see if we can reduce the olmesartan at some point but encouraged to continue taking at this time. Assessment & Plan (08/01/2020 2:50 PM SUPERVISOR [employer]RNAMENTAL [employer]ONWORKING): Bp is stable/in acceptable range for any co-morbidities. Encouraged to limit sodium intake and exercise for weight control. Assessment & Plan (05/30/2020 10:41 PM CDT): Bp is stable/in acceptable range for any co-morbidities. Encouraged to limit sodium intake and exercise for weight control. Continue benicar Assessment & Plan (01/27/2020 2:27 PM CDT): Bp is stable/in acceptable range for any co-morbidities. Encouraged to limit sodium intake and exercise for weight control. Assessment & Plan (07/27/2019 7:45 PM SUPERVISOR ORNAMENTAL IRONWORKING): Bp is stable/in acceptable range for any co-morbidities. Encouraged to limit sodium intake and exercise for weight control. Continue losartan Resolved Problems Problem Noted Date Diagnosed Date Resolved Date Prostate cancer screening 07/28/2024 Assessment & Plan (07/28/2024 8:53 PM SUPERVISOR ORNAMENTAL IRONWORKING): Check labs Fatigue 07/28/2024 12/29/2024 Assessment & Plan (07/28/2024 8:53 PM SUPERVISOR ORNAMENTAL IRONWORKING): Probably multifactorial. Check labs and followup to re-evaluate Acute pain of right knee 11/30/2023 Assessment & Plan (11/30/2023 2:59 PM CDT): Patient has acute right knee pain. Discussed getting x-rays considering physical therapy but he would prefer to see Orthopedics immediately. He would like to see Dr. [facility]. Will place the order. May continue with ice to the area along with the support sleeve and the Mobic. BMI 33.0-33.9,adult 05/31/2023 11/29/19 Assessment & Plan (05/31/2023 3:25 PM CDT): Discussed the patient's BMI. The BMI is above average. BMI management plan is completed. BMI Follow-up includes: nutrition counseling, exercise counseling and education provided. Coronary artery disease (CAD) excluded 04/03/2023 06/10/2023 Other chest pain 12/18/2022 02/01/2024 Assessment & Plan (12/18/2022 4:05 PM CDT): Patient has been noticing substernal chest pain. Will sometimes get a burning in his throat and then will drink water all go away. Has tried PPI and states it did not really help. EKG in the office showed 67bpm Sinus rhythm with 1st ddgree AV block Nonspecific intraventricular block Abnormal EKG Similar to 2020 EKG which showed 1 degree AV block and incomplete (R) BBB Discussed referral to Cardiology for his symptoms. He is in agreement with the plan. Advised if he has acute chest pain that intensifies or does not go away or begins having symptoms with exertion he is to immediately go to the ER for immediate evaluation. He verbalizes understanding. Will await recommendations from Cardiology. Obesity (BMI 30-39.9) 11/28/20222022 Assessment & Plan (11/28/2022 3:16 PM CDT): Discussed the patient's BMI. The BMI is above average. BMI management plan is completed. BMI Follow-up includes: nutrition counseling, exercise counseling and education provided. BMI 34.0-34.9,adult 11/28/2022 12/30/19 25 Assessment & Plan (07/28/2024 8:49 PM SUPERVISOR [employer]MENTAL [employer]ONWORKING): Discussed the patient's BMI. The BMI is above average. BMI management plan is completed. BMI Follow-up includes: nutrition counseling, exercise counseling and education provided. Assessment & Plan (02/01/2024 9:13 PM CDT): Discussed the patient's BMI. The BMI is above average. BMI management plan is completed. BMI Follow-up includes: nutrition counseling, exercise counseling and education provided. Assessment & Plan (11/30/2023 2:56 PM CDT): Discussed the patient's BMI. The BMI is above average. BMI management plan is completed. BMI Follow-up includes: nutrition counseling, exercise counseling and education provided. Assessment & Plan (11/28/2022 3:16 PM CDT): Discussed the patient's BMI. The BMI is above average. BMI management plan is completed. BMI Follow-up includes: nutrition counseling, exercise counseling and education provided. Diabetes mellitus screening 10/01/2022 12/18/2022 Assessment & Plan (10/02/2022 9:01 PM SUPERVIS[employer]WORKING): Check labs Fatigue 10/01/2022 12/18/2022 Assessment & Plan (10/02/2022 9:01 PM SUPERVIS[employer]WORK[employer]): Probably multifactorial. Check labs and followup to re-evaluate Prostate cancer screening 10/01/2022 Assessment & Plan (10/02/2022 9:01 PM SUPERVIS[employer]WORKING): Check labs Influenza vaccine refused 07/03/2021 Assessment & Plan (06/10/2023 12:32 PM CDT): Encouraged vaccine. Reviewed risks/ benefits. Patient refuses and accepts risks. Assessment & Plan (07/03/2021 7:12 AM CDT): Patient has refused the flu vaccine today as well as the COVID vaccine. Did spend time discussing the importance and benefit of the vaccines available. BMI 39.0-39.9,adult 07/02/2021 11/29/19 Assessment & Plan (10/02/2022 9:01 PM [employer]WORKING): Discussed the patient's BMI. The BMI is above average. BMI management plan is completed. BMI Follow-up includes: nutrition counseling, exercise counseling and education provided. Assessment & Plan (07/03/2021 7:12 AM CDT): Obesity is improved. Discussed the patient's BMI. The BMI is above average. BMI management plan is completed. BMI Follow-up includes: nutrition counseling, exercise counseling and education provided. Obesity (BMI 30-39.9) 07/02/20212022 Assessment & Plan (07/03/2021 7:12 AM CDT): Obesity is improved. Discussed the patient's BMI. The BMI is above average. BMI management plan is completed. BMI Follow-up includes: nutrition counseling, exercise counseling and education provided. BMI 40.0-44.9, adult 10/22/2020 Assessment & Plan (10/22/2020 10:59 AM SUPERVIS[employer]WORKING): Obesity is unchanged. Discussed the patient's BMI. The BMI is above average. BMI management plan is completed. BMI Follow-up includes: nutrition counseling, exercise counseling and education provided. Morbid obesity with BMI of 40.0-44.9, adult 10/22/2020 07/02/2021 Assessment & Plan (10/22/2020 11:00 AM [employer]WORK[employer]): Obesity is unchanged. Discussed the patient's BMI. The BMI is above average. BMI management plan is completed. BMI Follow-up includes: nutrition counseling, exercise counseling and education provided. Need for immunization against influenza 05/30/2020 07/03/2021 Assessment & Plan (05/30/2020 10:48 PM CDT): Flu vaccine given in office today BMI 38.0-38.9,adult 05/25/2020 10/22/19 Assessment & Plan (05/25/2020 3:09 PM CDT): Obesity is unchanged. Discussed the patient's BMI. The BMI is above average. BMI management plan is completed. BMI Follow-up includes: nutrition counseling, exercise counseling and education provided. Need for Tdap vaccination 01/27/2020 Assessment & Plan (01/27/2020 2:28 PM CDT): Updated in office BMI 38.0-38.9,adult 11/11/2019 05/25/20 Overview (11/11/2019): Obesity is unchanged. Discussed the patient's BMI. The BMI is above average. BMI management plan is completed. BMI Follow-up includes: nutrition counseling, exercise counseling and education provided. Assessment & Plan (01/27/2020 2:29 PM CDT): Obesity is unchanged. Discussed the patient's BMI. The BMI is above average. BMI management plan is completed. BMI Follow-up includes: nutrition counseling, exercise counseling and education provided. Generalized abdominal pain 10/09/2019 0 05/30/2020 Assessment & Plan (10/09/2019 10:27 AM SUPERVISOR [employer]WORKING): Bruising along the lower abdomen without known injury. Tender over the bruised area but abdomen is firm and tender with some guarding. Increased discomfort mid-epigastric area. It is 5pm so unable to get imaging done tonight. Reviewed with patient and possible dx of bleeding vs pancreatitis vs other etiology. If he has increased pain or N/V fever, chills or sweats, may consider ER. Get labs done now and then plan CT in AM Contusion of abdominal wall 10/09/2019 07/03/2021 Assessment & Plan (10/09/2019 10:21 AM SUPERVISOR [employer]WORK[employer]): See abdominal pain. Needs labs and CT abdomen Upper respiratory infection with cough and congestion 09/21/2019 01/27/2020 Assessment & Plan (09/21/2019 11:10 PM [employer]PERVIS[employer]WORKING): Persistent sxs--may be progressing to bronchitis. Antibiotic, Cheratussin and steroids. Albuterol prn. Push fluids, rest. If sxs worsen or don't resolve, he is to followup sooner. Stop smoking. Other fatigue 07/27/2019 07/03/2021 Assessment & Plan (05/30/2020 10:48 PM CDT): Probably multifactorial. Check labs and followup to re-evaluate Assessment & Plan (07/27/2019 7:46 PM [employer]PERVISOR [employer]WORK[employer]): Probably multifactorial. Check labs and followup to re-evaluate Lipid screening 07/27/2019 08/01/2020 Assessment & Plan (05/30/2020 10:47 PM CDT): Check labs Assessment & Plan (07/27/2019 7:46 PM SUPERVISOR [employer]WORKING): Check labs Diabetes mellitus screening 07/27/2019 08/01/2020 Assessment & Plan (05/30/2020 10:47 PM CDT): Check labs Assessment & Plan (07/27/2019 7:46 PM SUPERVISOR [employer]WORKING): Check labs Cigarette smoker 03/25/2019 05/31/2023 Assessment & Plan (12/18/2022 4:02 PM CDT): Encouraged smoking cessation. Discussed 3 minutes. Reviewed options for assistance with cessation. 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 Pt declines assistance at this time but may contact the office at anytime for further help as they desire. Patient did not start the Chantix. Continuing to try to cut down on his own Assessment & Plan (10/02/2022 9:06 PM SUPERVIS[employer]WORKING): This is a significant, separately identifiable problem that was evaluated and managed on the same day as the wellness exam Pt desires assistance with cessation. Discussed options at length. Will start Chantix Starter Pack. Take as directed. Reviewed risks, benefits, alternatives, side effects and proper use. Encouraged to decreased cigs as tolerated. Plan to stay on the Chantix 4-6 months, even if successful in stopping quickly. F.u if any increased emotional sxs or suicidal thoughts If Chantix isn't available may consider Wellbutrin again. Assessment & Plan (07/03/2021 7:11 AM CDT): Encouraged smoking cessation. Discussed 3 minutes. Reviewed options for assistance with cessation. 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 Pt declines assistance at this time but may contact the office at anytime for further help as they desire. Assessment & Plan (10/10/2020 2:16 PM [employer]PERVIS[employer]WORK[employer]): Encouraged smoking cessation. Discussed 3 minutes. Reviewed options for assistance with cessation. 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 Pt declines assistance at this time but may contact the office at anytime for further help as they desire. Assessment & Plan (08/01/2020 3:01 PM [employer]PERVIS[employer]WORKING): Encouraged smoking cessation. Discussed 3 minutes. Reviewed options for assistance with cessation. Reviewed usp sequela associated with smoking. Pt declines assistance at this time but may contact the office at anytime for further help as they desire. Assessment & Plan (05/30/2020 10:47 PM CDT): Pt desires assistance with cessation. Discussed options at length. Will start Chantix Starter Pack. Take as directed. Reviewed risks, benefits, alternatives, side effects and proper use. Encouraged to decreased cigs as tolerated. Plan to stay on the Chantix 4-6 months, even if successful in stopping quickly. F.u if any increased emotional sxs or suicidal thoughts Assessment & Plan (01/27/2020 2:27 PM CDT): Encouraged smoking cessation. Discussed 3 minutes. Reviewed options for assistance with cessation. Reviewed usp sequela associated with smoking. Pt declines assistance at this time but may contact the office at anytime for further help as they desire. Assessment & Plan (10/09/2019 10:22 AM SUPERVISOR [employer]WORKING): Encouraged smoking cessation. Discussed 3 minutes. Reviewed options for assistance with cessation. 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 Pt declines assistance at this time but may contact the office at anytime for further help as they desire. Stop smoking Assessment & Plan (09/21/2019 11:09 PM SUPERVIS[employer]WORKING): Encouraged smoking cessation. Discussed 3 minutes. Reviewed options for assistance with cessation. Reviewed usp sequela associated with smoking. Pt declines assistance at this time but may contact the office at anytime for further help as they desire. Assessment & Plan (07/27/2019 7:52 PM [employer]PERVIS[employer]WORKING): Encouraged smoking cessation. Discussed 3 minutes. Reviewed options for assistance with cessation. 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 Pt declines assistance at this time but may contact the office at anytime for further help as they desire. Discussed restarting chantix. He isn't quite there to quit but encouraged him to call if he wants to restart Morbid (severe) obesity due to excess calories 10/08/2018 05/31/2023 Assessment & Plan (10/02/2022 9:07 PM SUPERVISOR [employer]WORKING): Discussed the patient's BMI. The BMI is above average. BMI management plan is completed. BMI Follow-up includes: nutrition counseling, exercise counseling and education provided. Patient has an obesity-related condition (not limited to: hypertension, obstructive sleep apnea, osteoarthritis, hyperlipidemia, diabetes, etc.). Therefore, morbid obesity may be documented for patients with a BMI between 35.00-39.99. Smoking 10/08/2018 05/31/2023 Encounters Date Type Department Care Team Description 05/13/2025 Orders Only [facility] Medicine [address] [place] [id number] Estefani Ohara PA Mixed hyperlipidemia (Primary Dx) 05/13/2025 Orders Only [address] [place] [address] Estefani Ohara PA Abdominal pain (Primary Dx); Nausea; Bloating 05/13/2025 Nurse Triage [facility] Family Medicine [address] [place] [address] Estefani Ohara PA from Last 3 Months Immunizations Immunization Administration Dates Next Due Influenza, Quadrivalent, Spl it, Preservative Free, Intramuscular 05/25/2020,06/11/2019,06/01/2016 Influenza, Unspecified 09/04/2024(Deferr ed: Patient Refused),10/05/2022(Deferred: Patient Refused),10/05/2021(Deferred: Patient Refused),07/02/2021(Deferred: Patient Refused),06/11/2019 Tdap 11/11/2019 Surgical History Surgery Date Site/Laterality Comments HEMORRHOID SURGERY KNEE ARTHROSCOPY CARDIAC CATHETERIZATION Medical History Medical History Date Comments Hypertension COPD (chronic obstructive pulmonary disease) Chest pain Hyperlipidemia Sleep apnea CPAP Coronary artery disease Family History Medical History Relation Name Comments Heart disease Father No Known Problems Mother Relation Name Status Comments Father Alive Mother Alive Social History Tobacco Use Types Packs/Day Years Used Date Smoking Tobacco: Every Day Cigarettes 0.3 40 Smokeless Tobacco: Never Tobacco Cessation:Ready to Q uit: Not Asked; Counseling Given: Not Answered Comments:On welbutrin Alcohol Use Standard Drinks/Week Comments [...] often do you attend chur ch or gnosticism services? 1 to 4 times per year 04/04/2023 Do you belong to any clubs o r organizations such as judaism groups, unions, fraternal or athletic groups, or [...] place to sleep or slept in a long term (including now)? 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 Not on file Not on file Obstetrics History Last Filed Vital Signs Vital Sign Reading Time Taken Comments Blood Pressure 136/82 12/16/2024 3:39 PM CDT Pulse 67 12/16/2024 2:58 PM CDT Temperature 36.8 C (98.3 F) 12/16/2024 2:58 PM CDT Respiratory Rate 14 05/11/2023 12:46 PM CDT Oxygen Saturation 97% 12/16/2024 2:58 PM CDT Inhaled Oxygen Concentration - - Weight 116.6 kg (257 lb) 12/16/2024 2:58 PM CDT Height 180.3 cm (5' 11) 12/16/2024 2:58 PM CDT Body Mass Index 35.84 12/16/2024 2:58 PM CDT Plan of Treatment Health Maintenance Due Date Last Done Comments Hepatitis C Screening 1963 Hepatitis B Screening 1981 Pneumococcal vaccine <65 (1 of 2 - PCV) 1982 Zoster Vaccine (1 of 2) 2013 Colon Cancer Screening-Colonoscopy 05/20/2021 05/20/2019 Prostate Cancer Screening-PSA 10/06/2024 10/06/2022, 06/08/2020 Regular Well Visit/Exam 18-64 01/09/2025, 09/27/2022, 07/02/2021, Additional history exists Influenza Vaccine (#1) 2025 0, 06/11/2019, 06/11/2019, Additional history exists Depression Screening 12/16/2025 12/16/2024, 01/10/2024, 11/29/2023, Additional history exists DTaP/Tdap/Td Vaccine (2 - Td or Tdap) 11/10/2029 11/11/2019 Colon Cancer Screening-CT Colonography Discontinued 05/20/2019 Colon Cancer Screening-DNA Stool Discontinued 05/20/20 19, 01/13/2019 Colon Cancer Screening-FIT Discontinued 05/20/2019, Colon Cancer Screening-Sigmoidoscopy Discontinued 05/20/2019 Medical Devices Implanted Type Area Linderman Operator Device Identifier Shelf Expiration Date Model / Serial / Lot [employer] Device Closure Vascade Od5 Fr Femoral Artery [id number] - [id number] Implanted:Qty: 1 on 03/09/2023 by Eren Wallace MD at [facility] [employer] 09/26/2024 [id number] / / [id number] [employer] Medical Plate Bone Low Profile 4 Hole Box Ti 115.103.04 - [id number] Implanted:Qty: 1 on 04/03/2023 by Yousuf Morales MD at [facility] N/A: Sternum [employer] 115.103.04 / / [employer] Medical Plate Bone Low Profile 6 Hole H Shape Ti 115.102.06 - [id number] Implanted:Qty: 1 on 04/03/2023 by Yousuf Morales MD at [facility] N/A: Sternum [employer] 115.102.06 / / [employer] Medical Plate Bone Low Profile 6 Hole O Concave Ti 115.604.06 - [id number] Implanted:Qty: 1 on 04/03/2023 by Yousuf Morales MD at [facility] N/A: Sternum [employer] 115.604.06 / / [employer] Medical Screw Bone Slf Drl Full Thread Locking 3.5x18mm Ti 100.035.18 - [id number] Implanted:Qty: 16 on 04/03/2023 by Yousuf Morales MD at [facility] N/A: Sternum [employer] 100.035.18 / / Procedures Procedure Name Priority Date/Time Associated Diagnosis Comments PSA SCREEN Routine 10/06/2022 6:07 AM [employer]PERVISOR [employer]WORKING Prostate cancer screening COLONOSCOPY Routine 05/20/2019 from Last 3 Months or Most Recently Relevant to Health Maintenance Results * PSA screen (10/06/2022 6:07 AM SUPERVISOR [employer]MENT[employer]ONWORKING) PSA 1.55 < OR = 4.00 ng/mL [facility] Comment: The total PSA value from this assay system is standardized against the WHO standard. The test result will be approximately 20% lower when compared to the equimolar-standardized total PSA (Lani Stockton). Comparison of serial PSA results should be interpreted with this fact in mind. This test was performed using the Siemens chemiluminescent method. Values obtained from different assay methods cannot be used interchangeably. PSA levels, regardless of value, should not be interpreted as absolute evidence of the presence or absence of disease. Blood 10/06/2022 6:07 AM SU[employer]MENT[employer]WORKING 10/06/2022 6:10 AM SUPERVISOR [employer]RNAMENTAL [employer]ONWORKING Narrative [facility] - 10/07/2022 3:31 PM [employer]PER[employer]OR [employer]MENT[employer]ONWORKING FASTING:YES FASTING: YES Estefani DURAN LAB BLOOD ORDERABLES Final Result [facility] [address] [place] [address] * COLONOSCOPY (05/20/2019) Colonoscopy Abnormal Comment:Dr. Maciel --- se rated Adenoma --->05/2021 Historical Provider HEALTH MAINTENANCE Final Result from Last 3 Months or Most Recently Relevant to Health Maintenance Insurance [facility] CHOICE OOS Member Subscriber Plan / Payer (Ef fective 2019-Present) Name:Abdiel Srivastava Relation to Subscriber:Self Name:Abdiel Srivastava Payer ID:[id number] (NAIC) Type:CALE [employer]KER Address: [facility] [address] [place] [id number] [facility] ACCESS CHOICE ANTHEM ACCESS CHOICE ANTHEM ACCESS CHOICE BLUE ACC CHOICE OOS Member Subscriber Plan / Payer (Ef fective 2019-Present) Name:Abdiel Srivastava Relation to Subscriber:Self Name:Abdiel Srivastava Payer ID:[id number] (NAIC) Type:BC ALLIANCE Address: [facility] [id number] [place] [id number] Advance Directives For more information, please contact: [phone] * Full Code (Latest Code Status on File) Date Activated Date Inactivated Comments 04/03/2023 2:31 PM 04/07/2023 7:40 PM Care Teams Spice Grinder Relationship Specialty Start Date End Date Estefani Ohara PA [address] [place] [address] PCP - General Internal Medicine 02/08/19 Yousuf Morales MD [address] [place] [address] Surgeon Cardiothoracic Surgery 04/07/23 Eren Wallace MD [address] [place] [address] Consulting Physician Cardiology 04/07/23
--- OUTSIDE RECORDS SUMMARY | 2025-05-14 10:30 | XMS_ITS | Encounter Summary ---
Author Organization [facility] Healthcare Address [address] [place] [address] Care Team Providers Care Fisher Seal Name Role Phone Estefani Ohara Primary Care Provider [phone] Youusf Morales MD Unavailable [phone] Eren Wallace MD Unavailable Encounter Details Date Type Department Care Team (Late st Contact Info) Description 05/13/2025 Orders Only [facility] Family Medicine [address] [place] [address] Estefani Ohara PA [address] [place] [address] Abdominal pain (Primary Dx); Nausea; Bloating Social History Tobacco Use Types Packs/Day Years [...] week 04/04/2023 How often do you attend [facility] or buddhist services? 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 Not on file Not on file documented as of this encounter Progress Notes * Lorelei Jamison LPN - 05/13/2025 10:36 AM CDT STAT labs placed per PCP documented in this encounter Plan of Treatment Scheduled Orders Name Type Priority Associated Diagnoses Orde r Schedule Lipase Lab STAT Abdominal pain Nausea Bloating Expected: 05/16/2025, Expires: 05/13/2026 Comprehensive metabolic panel Lab STAT Abdominal pain Nausea Bloating Expected: 05/13/2025, Expires: 05/13/2026 CBC with auto differential Lab STAT Abdominal pain Nausea Bloating Expected: 05/13/2025, Expires: 05/13/2026 documented as of this encounter Visit Diagnoses Diagnosis Abdominal pain- Primary Abdominal pain, unspecified site Nausea Nausea alone Bloating Flatulence, eructation, and gas pain documented in this encounter Care Teams Fisher Seal Relationship Specialty Start Date End Date Estefani Ohara PA [address] [place] [address] PCP - General Internal Medicine 02/08/19 Yousuf Morales MD [address] [place] [address] Surgeon Cardiothoracic Surgery 04/07/23 Eren Wallace MD [address] [place] [address] Consulting Physician Cardiology 04/07/23 documented as of this encounter
[2025-05-14 10:59] LABS: Hematocrit 46.0 % (42.0-52.0); Hemoglobin 15.2 g/dL (14.0-18.0); Immature Granulocyte Percent A 0.3 % (0-0.5); Lymphocytes Absolute Auto 2.05 K/mm3 (0.9-3.2); Mean Corpuscular HGB Conc 33.0 g/dl (32-36); Mean Corpuscular Hemoglobin 30.8 pg (26-34); Mean Corpuscular Volume 93.3 fl (80-100); Nucleated Red Blood Cells Absolute Auto 0.000 K/mm3 (0.0-0.012); Nucleated Red Blood Cells Perc 0.0 % (0.0-0.2); Platelet Count Result 178 k/mm3 (150-375); Red Blood Count 4.93 M/mm3 (4.6-6.20); White Blood Count 7.4 K/mm3 (4.5-10.0)
[2025-05-14 11:20] LABS: Alanine Aminotransferase 29 U/L (6-50); Albumin Level 4.5 g/dL (3.5-5.1); Alkaline Phosphatase 91 U/L (38-126); Anion Gap 5 mmol/L (4-12); Aspartate Amino Transferase 36 U/L (17-59); Bilirubin,Total 1.3 mg/dL (0.2-1.3); Blood Urea Nitrogen 18 mg/dL (9-20); Calcium 9.4 mg/dL (8.4-10.2); Carbon Dioxide 29 mmol/L (22-30); Chloride 104 mmol/L (98-107); Cholesterol 120 mg/dL (0-200); Estimated Glomerular Filt Rate > 60; Glucose 97 mg/dL (65-110); HDL Direct 29 mg/dL; Lipase 65 U/L (23-300); Potassium 4.6 mmol/L (3.4-5.0); Sodium 138 mmol/L (137-145); Total Protein 7.1 g/dL (6.3-8.2); Triglycerides 99 mg/dL (<150)
== END 2025-05-14 09:43 | disposition home or self-care (01) ==
LOC: ANHLAB 09:44
PROVIDERS: PCP Physician Assistant; Visit Provider Physician Assistant
DX: R10.9 Unspecified abdominal pain (principal); E78.2 Mixed hyperlipidemia; R11.0 Nausea; R14.0 Abdominal distension (gaseous)
CPT/HCPCS: 36415; 80053; 80061; 83690; 85025

== ENCOUNTER 2025-05-18 10:33 | Outpatient (CLI) | payer BC, SELFPAY ==
--- NOTE | ~2025-05-18 | XR_ITS ---
EXAMINATION: XR knee RT min 4V, 05/18/2025 10:50 CDT HISTORY: S83.241A - Other tear of medial meniscus, current injury,... COMPARISON: No comparisons available. Findings: No acute fracture or malalignment. No significant degenerative changes. Soft tissues unremarkable. Impression: No acute fracture or malalignment. Reviewed, dictated and finalized at location A. Impression: No acute fracture or malalignment.
== END 2025-05-18 10:34 | disposition home or self-care (01) ==
PROVIDERS: PCP Physician Assistant; Visit Provider Orthopaedic Surgery
DX: S83.241A Other tear of medial meniscus, current injury, right knee, initial encounter (principal); X58.XXXA Exposure to other specified factors, initial encounter
CPT/HCPCS: 73564

== ENCOUNTER 2025-09-01 10:26 | Outpatient (CLI) | payer BC, SELFPAY ==
--- NOTE | ~2025-09-01 | CT_ITS ---
CT lung screening INDICATION: Personal history of nicotine dependence, screening COMPARISON: 09/11/2023. TECHNIQUE: CT examination of the entire thorax without contrast was performed using low dose technique. Thin section axial, sagittal and coronal images were included to increase sensitivity for small lung nodules. FINDINGS: PULMONARY NODULES: No suspicious noncalcified pulmonary nodule. OTHER PULMONARY FINDINGS: No significant nonnodular pleural or parenchymal abnormality is noted. Mild emphysematous changes are present. No pathologically enlarged lymph nodes are present. Normal heart size. There are mild coronary artery calcifications. UPPER ABDOMEN AND PERIPHERAL SOFT TISSUE: Left adrenal nodule is stable measuring 1.5 cm OSSEOUS STRUCTURES: Bone window shows no aggressive blastic or lytic lesions. IMPRESSION: 1. Lung-RADS category 1: No nodules or definitely benign nodules. Recommendations: 1 or 2: Annual screening with low-dose CT in 12 months. 2. Mild emphysematous changes are present. All CT scans at this facility are performed using low dose modulation techniques as appropriate to perform exam including the following: automated exposure control; use of iterative reconstruction technique; adjustment of the mA and/or kV according to patient size (this includes techniques or standardized protocols for targeted exams where dose is matched to indication/reason for exam). Reviewed, dictated and finalized at [facility] IMPRESSION: 1. Lung-RADS category 1: No nodules or definitely benign nodules. Recommendations: 1 or 2: Annual screening with low-dose CT in 12 months. 2. Mild emphysematous changes are present. All CT scans at this facility are performed using low dose modulation techniqu es as appropriate to perform exam including the following: automated exposure c ontrol; use of iterative reconstruction technique; adjustment of the mA and/or kV according to patient size (this includes techniques or standardized protocol s for targeted exams where dose is matched to indication/reason for exam).
--- OUTSIDE RECORDS SUMMARY | 2025-09-01 10:57 | XMS_ITS | Clinical Summary ---
Author Organization [facility] Address [address] [place] [address] Care Team Providers Care Instrument Repairer Name Role Phone Estefani Ohara Primary Care Provider [phone] Yousuf Morales MD Unavailable [phone] Eren Wallace MD Unavailable Allergies No known active allergies Medications metoprolol tartrate (LOPRESSOR) 25 mg immediate release tablet TAKE 1/2 OF A TABLET (12.5 MG TOTAL) BY MOUTH TWICE A DAY 90 tablet 1 5 Active albuterol HFA (PROVENTIL HFA,VENTOLIN HFA,PROAIR HFA) 90 mcg/actuation inhalerIndicati ons:SOB (shortness of breath) Inhale 2 puffs every 6 (six) hours as needed for wheezing or shortness of breath for wheezing 8.5 each 2 5 Active meloxicam (MOBIC) 15 mg tablet TAKE 1 TABLET (15 MG TOTAL) BY MOUTH DAILY. 90 tablet 1 5 Active aspirin 81 mg enteric coated tablet TAKE 1 TABLET BY MOUTH EVERY DAY 90 tablet 3 5 Active atorvastatin (LIPITOR) 40 mg tablet TAKE 1 TABLET BY MOUTH EVERY DAY 90 tablet 3 5 Active Active Problems Patient Care Coordination No te Formatting of this note migh t be different from the original. CAD for BIC Problem Noted Date Diagnosed Date BMI 34.0-34.9,adult 05/14/2025 Assessment & Plan (05/14/2025 1:05 PM CDT): Discussed the patient's BMI. The BMI is above average. BMI management plan is completed. BMI Follow-up includes: nutrition counseling, exercise counseling and education provided. Obesity (BMI 30-39.9) 05/14/2025 Assessment & Plan (05/14/2025 1:05 PM CDT): Discussed the patient's BMI. The BMI is above average. BMI management plan is completed. BMI Follow-up includes: nutrition counseling, exercise counseling and education provided. Prostate cancer screening 12/29/2024 Hx of CABG 11/14/2023 Cigarette smoker 06/10/2023 Assessment & Plan (07/28/2024 8:48 PM FLOOR SANDER): Encouraged smoking cessation. Discussed 3 minutes. Reviewed [...] Reviewed options for assistance with cessation. Reviewed intermediate sequela associated with smoking. Pt declines assistance [...] provided. Assessment & Plan (07/28/2024 8:49 PM FLOOR SANDER): Discussed the patient's BMI. The BMI is [...] education provided. Coronary artery disease invo lving [place] [facility] with unstable angina pectoris 03/23/2023 Overview (06/10/2023): Dr. Morales -- [facility] -- 03/2023 CABG X 3 (LEONARD to LAD, radial artery to obtuse marginal branch, saphenous vein graft to right coronary artery) Assessment & Plan (07/28/2024 8:49 PM FLOOR SANDER): Status post CABG x3 in 2022. He is on a statin, beta-meghna and an aspirin Assessment & Plan (02/01/2024 9:12 PM CDT): Dr. Morales -- [facility] -- 03/2023 CABG X 3 (LEONARD to [...] Cardiology. [place] prefer to transition to the [facility] group and shallow. Will make the [...] 10/01/2022 Assessment & Plan (10/02/2022 9:03 PM FLOOR SANDER): This is a significant, separately identifiable problem [...] 07/03/2021 Assessment & Plan (07/28/2024 8:50 PM FLOOR SANDER): Patient declines colon cancer screening. Patient understands [...] understanding Assessment & Plan (10/02/2022 9:06 PM FLOOR SANDER): Due to repeat colonoscopy. Patient declines at [...] in an overnight pulse ox to his deck supervisor at [facility] today and the results are not yet available. The patient was encouraged to shared these results with the sleep lab so we may determine if oxygen therapy with CPAP therapy as needed. Other emphysema 10/08/2020 Assessment & Plan (07/28/2024 8:50 PM FLOOR SANDER): Patient with COPD. Continue per Dr. Cruz pulmonary at [facility]. Currently declines any inhalers and just using the albuterol rescue p.r.n. Assessment & Plan (02/01/2024 9:11 PM CDT): Strongly encouraged complete smoking cessation. Dr. Vargas at [facility] manages his COPD. Currently doing well without medication Assessment & Plan (06/10/2023 12:32 PM CDT): Encouraged smoking cessation. Continue per Pulmonary Dr. Cruz. Continue Bevespi and Spiriva. Assessment & Plan (12/18/2022 4:02 PM CDT): Continue per pulmonology Dr. Rider at [facility]. Currently on Bevespi and albuterol p.r.n.. States breathing much easier with the weight loss. Strongly encouraged smoking cessation Assessment & Plan (10/02/2022 9:05 PM FLOOR SANDER): Continue per Dr. Rider's pulmonology at [facility]. On Bevespi and Spiriva. Continue to monitor closely. Assessment & Plan (07/03/2021 7:12 AM CDT): Continue per Dr. Cruz he states he feels best on the Bevespi and Spiriva. He is to follow up with Dr. Catherine for any other questions. Encouraged smoking cessation. Assessment & Plan (10/26/2020 3:43 PM FLOOR SANDER): Treated in ER. Feeling better but still having SOB> He stopped the Symbicort. Taking the Spiriva and thinks it helps. Not using albuterol to rescue. Will await recommendation from Pulmonary Assessment & Plan (10/10/2020 2:16 PM FLOOR SANDER): Complete the levofloxin and Prednisone as instructed [...] visit Assessment & Plan (08/01/2020 2:50 PM FLOOR SANDER): Labs are stable. Follow fatty liver diet. If discoloration or pain continues, will consider referral to GI/mechanical equipment test engineer. Multiple rib fractures 08/01/2020 Overview (08/01/2020): Summer 2019. Still not healed per 06/2020 CT. Assessment & Plan (08/01/2020 3:04 PM FLOOR SANDER): Still having discomfort at times and they appear to be incompletely healed after almost 6 months --- Will look into referral to see if other intervention is available--- Mixed hyperlipidemia 08/01/2020 Assessment & Plan (07/28/2024 8:52 PM FLOOR SANDER): Encouraged patient to follow low fat/low chol [...] May couple it with Co Q10 available [id number]. Recheck liver enzymes in a month and let bid panel in 4-6 months. Assessment & Plan (10/02/2022 9:01 PM FLOOR SANDER): Encouraged patient to follow low fat/low chol diet like the Mediterranean diet. Increase good fats in the diet. Increase exercise. Monitor labs as needed. Assessment & Plan (07/03/2021 7:11 AM CDT): Encouraged patient to follow fat/low chol diet like the Mediterranean diet. Increase good fats in the diet. Increase exercise. Monitor labs as needed. Assessment & Plan (08/01/2020 3:05 PM FLOOR SANDER): Encouraged patient to follow fat/low chol diet like the Mediterranean diet. Increase good fats in the diet. Increase exercise. Monitor labs as needed. Discussed statin -- he wants to try to change diet and recheck in 3 months before starting. Abdominal pain 05/30/2020 Assessment & Plan (08/01/2020 2:49 PM FLOOR SANDER): Labs and CT did not reveal underlying [...] The patient denied need for supplies. The [employer] company is [employer]. The patient was ordered a new mask and head gear. The patient is benefitting from CPAP therapy. Assessment & Plan (10/26/2020 3:43 PM FLOOR SANDER): Continue per Dr. Magaña/Sleep. Encouraged CPAP use to avoid intermediate problems. Assessment & Plan (10/10/2020 2:15 PM FLOOR SANDER): Encouraged to nightly use the CPAP and will wait for results/recommendations. Assessment & Plan (05/30/2020 10:40 PM CDT): This is a significant, separately identifiable problem that was evaluated and managed on the same day as the wellness exam Refer to Pulmonary for sleep study Adrenal hyperplasia 01/27/2020 Overview (05/15/2025): 01/2020 -- noted on CT 06/2020 -- no longer noted on CT. --Serum levels were normal. 11/2020 on CTLungCA: 2.3cm (L) adrenal nodule 05/2025 on Ctab/pelvis with contrast: 1.9cm (L) adrenal nodule. Assessment & Plan (08/01/2020 3:00 PM FLOOR SANDER): Resolved per 06/2020 CT Assessment & Plan (05/30/2020 10:43 PM CDT): Encourage to get the labs ordered and will repeat imagaging. Discussed referral to Endocrine pending the results but pt would prefer to wait for labs. Assessment & Plan (01/27/2020 2:28 PM CDT): Check labs. May need additional imaging vs referral to Endocrine Annual physical exam 01/27/2020 Assessment & Plan (07/28/2024 8:51 PM FLOOR SANDER): Encouraged healthy lifestyle, good nutrition and exercise. Encouraged Calcium and Vitamin D and weight bearing exercise for bone health. Reviewed immunizations Reviewed age appropirate screenings. Assessment & Plan (02/01/2024 9:12 PM CDT): Encouraged healthy lifestyle, good nutrition and exercise. Encouraged Calcium and Vitamin D and weight bearing exercise for bone health. Reviewed immunizations Reviewed age appropirate screenings. Assessment & Plan (10/02/2022 8:58 PM FLOOR SANDER): Encouraged healthy lifestyle, good nutrition and exercise. [...] provided. Assessment & Plan (10/09/2019 10:21 AM FLOOR SANDER): Obesity is unchanged. Discussed the patient's BMI. The BMI is above average. BMI management plan is completed. BMI Follow-up includes: nutrition counseling, exercise counseling and education provided. Assessment & Plan (07/27/2019 7:45 PM FLOOR SANDER): Obesity is unchanged. Discussed the patient's BMI. [...] symptoms. Assessment & Plan (10/26/2020 3:43 PM FLOOR SANDER): See COPD exacerbation Assessment & Plan (10/10/2020 2:14 PM FLOOR SANDER): Refer to Pulmonary. Pt prefers [facility]. Sxs were present before exacerbation. Assessment & Plan (05/30/2020 10:41 PM CDT): Continue albuterol prn and Symbicort. Suspect COPD with his smoking history Assessment & Plan (07/27/2019 7:46 PM FLOOR SANDER): Uses Albuterol prn. No SOB with activity Essential hypertension 10/08/2018 Assessment & Plan (07/28/2024 8:51 PM FLOOR SANDER): Bp is stable/in acceptable range for any [...] medication. Assessment & Plan (10/02/2022 8:58 PM FLOOR SANDER): Bp is stable/in acceptable range for any [...] time. Assessment & Plan (08/01/2020 2:50 PM FLOOR SANDER): Bp is stable/in acceptable range for any [...] control. Assessment & Plan (07/27/2019 7:45 PM FLOOR SANDER): Bp is stable/in acceptable range for any co-morbidities. Encouraged to limit sodium intake and exercise for weight control. Continue losartan Resolved Problems Problem Noted Date Diagnosed Date Resolved Date Prostate cancer screening 07/28/2024 Assessment & Plan (07/28/2024 8:53 PM FLOOR SANDER): Check labs Fatigue 07/28/2024 12/29/2024 Assessment & Plan (07/28/2024 8:53 PM FLOOR SANDER): Probably multifactorial. Check labs and followup to re-evaluate Acute pain of right knee 11/30/2023 Assessment & Plan (11/30/2023 2:59 PM CDT): Patient has acute right knee pain. Discussed getting x-rays considering physical therapy but he would prefer to see Orthopedics immediately. He would like to see Dr. [facility]. Will place the order. May continue with [...] 25 Assessment & Plan (07/28/2024 8:49 PM FLOOR SANDER): Discussed the patient's BMI. The BMI is [...] 12/18/2022 Assessment & Plan (10/02/2022 9:01 PM FLOOR SANDER): Check labs Fatigue 10/01/2022 12/18/2022 Assessment & Plan (10/02/2022 9:01 PM FLOOR SANDER): Probably multifactorial. Check labs and followup to re-evaluate Prostate cancer screening 10/01/2022 Assessment & Plan (10/02/2022 9:01 PM FLOOR SANDER): Check labs Influenza vaccine refused 07/03/2021 Assessment & Plan (06/10/2023 12:32 PM CDT): Encouraged vaccine. Reviewed risks/ benefits. Patient refuses and accepts risks. Assessment & Plan (07/03/2021 7:12 AM CDT): Patient has refused the flu vaccine today as well as the COVID vaccine. Did spend time discussing the importance and benefit of the vaccines available. BMI 39.0-39.9,adult 07/02/2021 11/29/19 23 Assessment & Plan (10/02/2022 9:01 PM FLOOR SANDER): Discussed the patient's BMI. The BMI is [...] and education provided. BMI 40.0-44.9, adult 10/22/2020 021 Assessment & Plan (10/22/2020 10:59 AM FLOOR SANDER): Obesity is unchanged. Discussed the patient's BMI. The BMI is above average. BMI management plan is completed. BMI Follow-up includes: nutrition counseling, exercise counseling and education provided. Morbid obesity with BMI of 40.0-44.9, adult 10/22/2020 07/02/2021 Assessment & Plan (10/22/2020 11:00 AM FLOOR SANDER): Obesity is unchanged. Discussed the patient's BMI. [...] 05/30/2020 Assessment & Plan (10/09/2019 10:27 AM FLOOR SANDER): Bruising along the lower abdomen without known [...] 07/03/2021 Assessment & Plan (10/09/2019 10:21 AM FLOOR SANDER): See abdominal pain. Needs labs and CT abdomen Upper respiratory infection with cough and congestion 09/21/2019 01/27/2020 Assessment & Plan (09/21/2019 11:10 PM FLOOR SANDER): Persistent sxs--may be progressing to bronchitis. Antibiotic, Cheratussin and steroids. Albuterol prn. Push fluids, rest. If sxs worsen or don't resolve, he is to followup sooner. Stop smoking. Other fatigue 07/27/2019 07/03/2021 Assessment & Plan (05/30/2020 10:48 PM CDT): Probably multifactorial. Check labs and followup to re-evaluate Assessment & Plan (07/27/2019 7:46 PM FLOOR SANDER): Probably multifactorial. Check labs and followup to re-evaluate Lipid screening 07/27/2019 08/01/2020 Assessment & Plan (05/30/2020 10:47 PM CDT): Check labs Assessment & Plan (07/27/2019 7:46 PM FLOOR SANDER): Check labs Diabetes mellitus screening 07/27/2019 08/01/2020 Assessment & Plan (05/30/2020 10:47 PM CDT): Check labs Assessment & Plan (07/27/2019 7:46 PM FLOOR SANDER): Check labs Cigarette smoker 03/25/2019 05/31/2023 Assessment & Plan (12/18/2022 4:02 PM CDT): Encouraged smoking cessation. Discussed 3 minutes. Reviewed options for assistance with cessation. Reviewed buttermaker helper sequela associated with smoking. Pt declines assistance at this time but may contact the office at anytime for further help as they desire. Patient did not start the Chantix. Continuing to try to cut down on his own Assessment & Plan (10/02/2022 9:06 PM FLOOR SANDER): This is a significant, separately identifiable problem [...] Reviewed options for assistance with cessation. Reviewed intermediate sequela associated with smoking. Pt declines assistance at this time but may contact the office at anytime for further help as they desire. Assessment & Plan (10/10/2020 2:16 PM FLOOR SANDER): Encouraged smoking cessation. Discussed 3 minutes. Reviewed options for assistance with cessation. Reviewed intermediate sequela associated with smoking. Pt declines assistance at this time but may contact the office at anytime for further help as they desire. Assessment & Plan (08/01/2020 3:01 PM FLOOR SANDER): Encouraged smoking cessation. Discussed 3 minutes. Reviewed options for assistance with cessation. Reviewed intermediate sequela associated with smoking. Pt declines assistance [...] Reviewed options for assistance with cessation. Reviewed buttermaker helper sequela associated with smoking. Pt declines assistance at this time but may contact the office at anytime for further help as they desire. Assessment & Plan (10/09/2019 10:22 AM FLOOR SANDER): Encouraged smoking cessation. Discussed 3 minutes. Reviewed options for assistance with cessation. Reviewed buttermaker helper sequela associated with smoking. Pt declines assistance at this time but may contact the office at anytime for further help as they desire. Stop smoking Assessment & Plan (09/21/2019 11:09 PM FLOOR SANDER): Encouraged smoking cessation. Discussed 3 minutes. Reviewed options for assistance with cessation. Reviewed intermediate sequela associated with smoking. Pt declines assistance at this time but may contact the office at anytime for further help as they desire. Assessment & Plan (07/27/2019 7:52 PM FLOOR SANDER): Encouraged smoking cessation. Discussed 3 minutes. Reviewed options for assistance with cessation. Reviewed buttermaker helper sequela associated with smoking. Pt declines assistance at this time but may contact the office at anytime for further help as they desire. Discussed restarting chantix. He isn't quite there to quit but encouraged him to call if he wants to restart Morbid (severe) obesity due to excess calories 10/08/2018 05/31/2023 Assessment & Plan (10/02/2022 9:07 PM FLOOR SANDER): Discussed the patient's BMI. The BMI is above average. BMI management plan is completed. BMI Follow-up includes: nutrition counseling, exercise counseling and education provided. Patient has an obesity-related condition (not limited to: hypertension, obstructive sleep apnea, osteoarthritis, hyperlipidemia, diabetes, etc.). Therefore, morbid obesity may be documented for patients with a BMI between 35.00-39.99. Smoking 10/08/2018 05/31/2023 Encounters Date Type Department Care Team Description 06/03/2025 Telephone [facility] Cardiology at [address] [place] [address] Maria E Andrews MA Orthopaedics Surgical Clearance from Last 3 Months Immunizations Immunization Administration [...] often do you attend chur ch or mandaeism services? 1 to 4 times per year 04/04/2023 Do you belong to any clubs o r organizations such as gnosticism groups, unions, fraternal or athletic groups, or school groups? No 04/04/2023 How often do you attend meet ings of the clubs or organizations you belong to? Never 04/04/2023 Are you , , di vorced, , never , or living with a partner? 04/04/2023 Overall Financial Resource Strain (CARDIA) Answe r Date Recorded How hard is it for you to pa y for the very basics like food, housing, medical care, and heating? Not hard at all 04/04/2023 PHQ-2 Answer Date Recorded PHQ-2 Total Score (If total score is 3 or more points, staff should administer the PHQ-9) 1 05/14/2025 Hunger Vital Sign Answer Date Recorded Within [...] place to sleep or slept in a senior living (including now)? No 04/04/2023 AUDIT-C Answer Date Recorded Q1: How often do you have a drink containing alc ohol? Monthly or less 05/14/2025 Q2: How many drinks containi ng alcohol do you have on a typical day when you are drinking? 5 or 6 05/14/2025 Q3: How often do you have si x or more drinks on one occasion? 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 Not on file Not on file Last Filed Vital Signs Vital Sign Reading Time Taken Comments Blood Pressure 142/76 05/29/2025 3:03 PM CDT Pulse 63 05/29/2025 3:03 PM CDT Temperature 36.7 C (98 F) 05/14/2025 1:01 PM CDT Respiratory Rate 14 05/11/2023 12:4 6 PM CDT Oxygen Saturation 97% 05/29/2025 3:03 PM CDT Inhaled Oxygen Concentration - - Weight 114.9 kg (253 lb 6.4 oz) 05/29/2025 3:03 PM CDT Height 180.3 cm (5' 11) 05/29/2025 3:03 PM CDT Body Mass Index 35.34 05/29/2025 3:03 PM CDT Plan of Treatment Health Maintenance [...] 06/11/2019, 06/11/2019, Additional history exists Depression Screening 05/14/2026 05/14/2025, 12/16/2024, 01/10/2024, Additional history exists DTaP/Tdap/Td Vaccine (2 - Td or Tdap) 11/10/2029 11/11/2019 Colon Cancer Screening-CT Colonography Discontinued 05/20/2019 Colon Cancer Screening-DNA Stool Discontinued 05/20/20 19, 01/13/2019 Colon Cancer Screening-FIT Discontinued 05/20/2019, Colon Cancer Screening-Sigmoidoscopy Discontinued 05/20/2019 Medical Devices Implanted Type Area Bottom Brusher Device Identifier Shelf Expiration Date Model / Serial / Lot Living Lens [employer] Device Closure Vascade Od5 Fr Femoral Artery [id number] - [id number] Implanted:Qty: 1 on 03/09/2023 by Eren Wallace MD at [facility] [employer] 09/26/2024 [id number] / / [id number] [employer] Plate Bone Low Profile 4 Hole Box Ti 115.103.04 - [id number] Implanted:Qty: 1 on 04/03/2023 by Yousuf Morales MD at [facility] N/A: Sternum [employer] 115.103.04 / / [employer] Plate Bone Low Profile 6 Hole H Shape Ti 115.102.06 - [id number] Implanted:Qty: 1 on 04/03/2023 by Yousuf Morales MD at [facility] N/A: Sternum [employer] 115.102.06 / / [employer] Plate Bone Low Profile 6 Hole O Concave Ti 115.604.06 - [id number] Implanted:Qty: 1 on 04/03/2023 by Yousuf Morales MD at [facility] N/A: Sternum [employer] 115.604.06 / / [employer] Screw Bone Slf Drl Full Thread Locking 3.5x18mm Ti 100.035.18 - [id number] Implanted:Qty: 16 on 04/03/2023 by Yousuf Morales MD at [facility] N/A: Sternum [employer] 100.035.18 / / Procedures Procedure Name Priority Date/Time Associated Diagnosis Comments PSA SCREEN Routine 10/06/2022 6:07 AM FLOOR SANDER Prostate cancer screening HM COLONOSCOPY Routine 05/20/2019 from Last 3 Months or Most Recently Relevant to Health Maintenance Results * PSA screen (10/06/2022 6:07 AM FLOOR SANDER) PSA 1.55 < OR = 4.00 ng/mL [facility] Comment: The total PSA value from this assay system is standardized against the WHO standard. The test result will be approximately 20% lower when compared to the equimolar-standardized total PSA (Lani Chelsey). Comparison of serial PSA results should be interpreted with this fact in mind. This test was performed using the Siemens chemiluminescent method. Values obtained from different assay methods cannot be used interchangeably. PSA levels, regardless of value, should not be interpreted as absolute evidence of the presence or absence of disease. Blood 10/06/2022 6:07 AM FLOOR SANDER 10/06/2022 6:10 AM FLOOR SANDER Narrative [facility] - 10/07/2022 3:31 PM FLOOR SANDER FASTING:YES FASTING: YES Estefani DURAN LAB BLOOD ORDERABLES Final Result [facility] [address] [place] [address] * COLONOSCOPY (05/20/2019) Colonoscopy Abnormal Comment:Dr. aMciel --- se rated Adenoma --->05/2021 Historical Provider HEALTH MAINTENANCE Final Result from Last 3 Months or Most Recently Relevant to Health Maintenance [place] [address] ANTHEM ACCESS CHOICE ANTHEM ACCESS CHOICE BLUE ACC CHOICE OOS Advance Directives For more information, please contact: [phone] * Full Code (Latest Code Status on File) Date Activated Date Inactivated Comments 04/03/2023 2:31 PM 04/07/2023 7:40 PM Care Teams Instrument Repairer Relationship Specialty Start Date End Date Estefani Ohara PA [address] [place] [address] PCP - General Internal Medicine 02/08/19 Yousuf Morales MD [address] [place], [place] [id number] Surgeon Cardiothoracic Surgery 04/07/23 Eren Wallace MD [address] [place] [address] Consulting Physician Cardiology 04/07/23
--- OUTSIDE RECORDS SUMMARY | 2025-09-01 10:57 | XMS_ITS | Clinical Summary ---
Author Organization [facility] Address [address] [place] [address] Care Team Providers Care Director Labor Standards Name Role Phone None, Provider MD Primary [...] of 2) 2013 COVID-19 Vaccine (1 - 2024-2 6 season) 2025 Influenza Adult (#1) 2025 RSV Immunization or 60+ Years (1 - 1-dose 75+ series) 2038 Hepatitis A Vaccines Aged Out No long er eligible based on patient's age to complete this topic Meningococcal B Vaccine Aged Out No l onger eligible based on patient's age to complete this topic Meningococcal Vaccine Aged Out No ron vinita eligible based on patient's age to complete this topic RSV Immunizations Under 20 Months Aged Out No longer eligible based on patient's age to complete this topic Insurance Care Teams Director Labor Standards Relationship Specialty Start Date End Date None, Provider, PCP - General 05/17/19
== END 2025-09-01 10:27 | disposition home or self-care (01) ==
PROVIDERS: PCP Physician Assistant; Visit Provider Physician Assistant
DX: Z12.2 Encounter for screening for malignant neoplasm of respiratory organs (principal); Z87.891 Personal history of nicotine dependence
CPT/HCPCS: 71271